=== PATIENT | female | born 1955 | race Caucasian/White ===

== ENCOUNTER 2020-02-19 08:49 | Emergency (ER) | payer MEDICAID, SELFPAY ==
[2020-02-19 08:53] VITALS: BP 132/102; PULSE 79; RESP 18; TEMP 37.1; O2SAT 100
[2020-02-19 08:55] VITALS: BP 133/102; PULSE 79; RESP 18; TEMP 37.1; O2SAT 100; BMI 19.3
--- NOTE | 2020-02-19 09:11 | ED.DCSUM_ITS ---
History of Present Illness Chief Complaint: Wound Check Informant: Patient Onset: Yesterday Context: Gradual Onset Timing: Intermittent Quality: serosanguinous drainage Location: L thigh surgical wound Current Severity: Moderate Maximum Severity: Moderate Worsened by: pushing on wound Relieved by: nothing Associated Symptoms: none. no pain, swellling, fevers, redness. Narrative: Patient had tongue cancer, and about 10 days ago had reconstructive tongue surgery at [facility] with a muscle flap taken from her left thigh. She has been doing well postoperatively. She has a DANTE drain in her left thigh that has been draining about 60 cc/day. Last night she noticed that it started leaking around the drain site for the first time, soaking her clothes nearby. She last emptied her drain last night, and there has been no output in it since. She denies any symptoms in her operative wound where the drain is, and no fevers or systemic symptoms of feeling poorly. - Past Medical History (1) Tongue cancer Status: Chronic Past Medical History - Allergies and Home Meds Allergies/Adverse Reactions: Allergies No Known Allergies Allergy (Verified 02/19/20 08:51) Primary Care Physician: Solomon San MD [Primary Care Provider] - Lives: With Family Smoking Status: Former smoker Review of Systems General: Denies: Chills, Fever, Sweats Gastrointestinal: Denies: Abdominal pain, Nausea, Vomiting, Diarrhea, Melena, Hematochezia Musculoskeletal: Denies: Back pain, Swelling, Extremity Pain Skin: Reports: Wounds - Operative. Denies: Rash Neurological: Denies: Headache, Weakness, Numbness Physical Exam Vital Signs/Narrative: Vital Signs Temp Pulse Resp BP Pulse Ox 02/19/20 08:55 98.7 F 79 18 133/102 H 100 02/19/20 08:53 98.7 F 79 18 132/102 H 100 Inital Vital Signs reviewed: Yes General: Well nourished, Well developed, No Acute Distress Head: Normocephalic, Atraumatic Extremities: Nontender, No edema Skin: Normal color, - - Left thigh surgical wound clean, dry, intact, without dehiscence. DANTE drain in place at proximal aspect, with palpation of this part of the wound, there is a slight amount of nonpurulent serosanguineous discharge expressible from around the drain. No induration or signs of cellulitis. Neurological: Alert, Oriented x3, Cranial nerves II-XII grossly intact, Normal Strength, Normal Sensation Psychological: Normal affect, Normal Mood Diagnostic/Tx/Re-eval - Medical Decision Making See the procedure note. There was a clot blocking the tubing of the drain. Once this was removed the drain functioned normally. Patient was reassured and is following up as scheduled. There is no sign of infection in the wound. Procedures Procedure(s): Marcelino-Carreno drain repair --there is a suction device at the end of the DANTE drain. Within about the distal 10 cm of the tubing, there is clot present causing obstruction. I was able to simply disassemble the tubing at the suction device, the clot was easily removable, the tubing was put back together and suction was applied and the serosanguineous drainage began immediately flowing throughout all of the tubing from the wound. ED Disposition - Plan for ED Patient: Disposition: Home or Assisted Living Diagnosis: Draining postoperative wound Instructions: ED Post Op Wound Check, General Referrals: Solomon San MD [Primary Care Provider] - surgeon, your [Other] (as directed/scheduled)
--- NOTE | 2020-02-19 09:51 | NURSING ---
in to take large stringy clot out of drain tube. drain then draining well now.
== END 2020-02-19 09:52 | disposition home or self-care (01) ==
LOC: ED 09:36
PROVIDERS: Emergency Provider Emergency Medicine
DX: T81.31XA Disruption of external operation (surgical) wound, not elsewhere classified, initial encounter (principal); Z87.891 Personal history of nicotine dependence; Z85.810 Personal history of malignant neoplasm of tongue
CPT/HCPCS: 99284

== ENCOUNTER 2020-06-02 10:27 | Outpatient (RCR) | payer MEDICAID, SELFPAY ==
[2020-03-07 11:16] VITALS: BMI 19.4
== END 2020-07-26 23:59 ==
LOC: IMMUN 10:27
PROVIDERS: Referring Provider Family Medicine; Visit Provider Family Medicine
DX: Z23 Encounter for immunization (principal)
CPT/HCPCS: 0001A; 0002A; 91300

== ENCOUNTER → 2020-12-29 13:12 | Outpatient (CLI) | payer MEDICAID, SELFPAY ==
[2020-03-07 11:16] VITALS: BMI 19.4
--- NOTE | 2020-12-29 14:28 | SP.MBSS_ITS ---
Modified Barium Swallow - Patient Information Study Date: 12/29/20 Study Time: 13:30 Direct Billable Minutes: 145 Total Minutes procedure & reportin Diagnosis: Tongue Cancer Referring Physician: Ryan Hennessy Reason for Referral: Referred for MBS to objectively assess the extent to which oropharyngeal swallow function has been impacted by her prior partial glossectomy with flap based reconstruction, right selective neck dissection, and postoperative radiation therapy and elucidate diet texture/liquid consistency/compensatory strategy recommendations. Imaging is medically necessary to improve specificity of dysphagia intervention for improved patient outcome. This patient expresses a desire to resume oral intake and decreased reliance upon PEG. 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 From 03/24/2020 - 05/06/2020: received 6000 cGy delivered to the postoperative flap based reconstruction and remaining oral tongue as well as the right neck levels 1B through 4 and 5400 cGy delivered to the left neck levels 1B through 4 as well as the bilateral supraclavicular fossa. Current Diet Ordered: NPO w/ PEG tube; consumes water by mouth only Dentition: Natural Teeth, Missing Teeth Mental Status: WNL Respiratory Status: Oxygenating on Room Air - Penetration-Aspiration Scale Penetration-Aspiration Scale: OBJECTIVE ASSESSMENT OF SWALLOW FUNCTION (QUANTITATIVE ? PER TRIAL): PENETRATION / ASPIRATION SCALE (BULL): 1 = does not enter airway 2 = enters airway/above vocal folds/ejected 3 = enters airway/above vocal folds/not ejected 4 = enters airway/contacts vocal folds/ejected 5 = enters airway/contacts vocal folds/not ejected 6 = enters airway/below vocal folds/ejected 7 = enters airway/below vocal folds/not ejected despite effort 8 = enters airway/below vocal folds/no effort VIDEOFLOROSCOPIC SCALE SCORE (BULL): Grade I = aspiration of material that has penetrated into the laryngeal vestibule, intact cough reflex Grade II = aspiration < 10 % of the bolus, intact cough reflex Grade III = aspiration of < 10 % of the bolus, reduced cough reflex or aspiration of > 10 % of the bolus, intact cough reflex Grade IV = aspiration of > 10 % of the bolus, reduced cough reflex - Penetration-Aspiration Scale Score Thin Liquid via small single sip from cup Result: 3= enters airways/above vocal folds/not ejected Thin Liquid via small single sip from cup Trial 2 Result: 8= enters airway/below vocal folds/no effort - Grade III = aspiration of < 10 % of the bolus, reduced cough reflex (SILENT ASPIRATION) Comment: Image: thin liquid contrast lining anterior wall of trachea - no patient awareness of aspiration - no post prandial coughing, throat clearing, or change in vocal quality appreciated - silent aspiration [place] Thick Liquid via large single sip from cup Result: 8= enters airway/below vocal folds/no effort - Grade III = aspiration of < 10% of the bolus, reduced cough response (SILENT ASPIRATION) Comment: penetration into the laryngeal vestibule, above the vocal folds, requiring 7 swallows to sufficiently clear the oropharynx; penetrated contrast did not eject resulting in post-prandial silent aspiration of pharyngeal residuals/penetrated contrast [place] Thick Liquid via small single sip from cup w/ breath hold/effortful swallow Result: 3= enters airways/above vocal folds/not ejected Comment: unable to transport majority of the small bolus into the pharynx d/t limited bolus size and lack of tongue movement; breath hold/effortful swallow not effec tive to improve laryngeal vestibule closure or pharyngeal bolus clearance Pudding via teaspoon Comment: unable to transport bolus out of the oral cavity d/t severely limited lingual motion, bolus expectorated/removed from the oral cavity Thin Liquid via single sip from cup Reclined 120 degrees Result: 2= enter airway/above vocal folds/ejected Comment: improved oral bolus clearance d/t gravitational assist; positioning allowed for liquid to spill along the posterior pharyngeal wall to the pyriform sinuses w/ transient laryngeal vestibule penetration d/t contrast spillage from the pyriforms w/ complete ejection; 5 swallows required to bolus clearance; no post- prandial aspiration 5mL Pudding via syringe administered to the right terminal sulcus of the tongue while Reclined 120 degrees Comment: unable to complete oral to pharyngeal transportation w/ entire bolus retained on the posterior lingual surface Thin Liquid via single sip from cup while reclined 120 degrees serving as liquid wash for 5mL pudding administered via syringe Result: 5= enters airways/contacts vocal folds/not ejected [place] Comment: unable to clear chew/orally manipulate, necessitating bolus removal from the oral cavity - Oral Phase Labial Seal: Escape beyond interlabial space; no extension beyond raquel border Tongue Control During Bolus Hold: Escape to lateral buccal cavity/floor of mouth Bolus Preparation/Mastication: Minimal chewing/mashing with majority of bolus unchewed Bolus Transport/Lingual Motion: Minimal to no tongue motion Oral Residue: Minimal to no clearance - Pharyngeal Phase Initiation of Pharyngeal Swallow: Bolus head in pyriforms Soft Palate Elevation: No bolus between soft palate and pharyngeal wall Laryngeal Elevation: Min superior movement thyroid cart/min apprx aryte cart- epig petiole Anterior Hyoid Excursion: No anterior movement Epiglottic Movement: No inversion Laryngeal Vestibule Closure at Height of Swallow: Incomplete; narrow column of air/contrast in laryngeal vestibule Pharyngeal Stripping Wave: Absent Pharyngoesophageal Segment Opening: Minimal distension and minimal duration; marked obstruction of flow Tongue Base Retraction: Wide column of contrast between tongue base & post. pharyngeal wall Pharyngeal Residue: Majority of contrast within or on pharyngeal structures - Esophageal Phase Esophageal Clearance: Complete clearance - Diagnosis/Impression Diagnosis: SEVERE oral dysphagia (R13.11); mod to severe pharyngeal dysphagia (R13.13) Impression: Swallow function is characterized by: * Impaired oral containment w/ diffuse spread t/o oral cavity d/t lack of lingua l cupping * Minimal lingual motion w/ severely limited A-P bolus transit * unable to transport majority of the small volume liquids boluses from the oral cavity into the pharynx d/t limited bolus size and lack of tongue movement * heavily reliant upon gravity and large bolus liquid bolus volume to t [place] liquids into the pharynx * Reduced tongue base retraction w/ the posterior pharyngeal wall attempting to compensate * unable to achieve sufficient pressure for pharyngeal pharyngeal bolus fadumo arance * Spillage to the pyriform sinuses vs. directly into the laryngeal vestibule, dependent upon positioning, prior to swallow onset * Poor arytenoid to epiglottic petiole contact w/ no epiglottic inversion resulting in laryngeal vestibule penetration w/ post prandial penetration/aspiration of pharyngeal residue * Partial thyroid elevation, no anterior thyrohyoid excursion resulting in: * poor arytenoid to epiglottic petiole contact w/ no epiglottic inversion and subsequent laryngeal vestibule penetration w/ post prandial penetration/aspiration of pharyngeal residue * Poor PES distention w/ limited pharyngeal to esophageal clearance, requiring 3-7 swallows per bolus for partial pharyngeal clearance Compensatory Strategies Trialed: * Effortful Swallow = not effective * Breath Hold + Effortful Swallow = not effective * Multiple Swallows = partially effective w/ liquids to improve pharyngeal residue clearance * Posterior Bolus Placement via Syringe = not effective * Reclined Position (~120 degrees) = effective, positioning allowed for liquid to spill along the posterior pharyngeal wall to the pyriform sinuses w/ significant reduction in prandial laryngeal vestibule penetration * Liquid Chaser to Aid Oral Bolus Clearance = not effective to assist w/ oral bolus transportation w/ pudding * Reduction in Bolus Size = not effective, unable to clear small volume liquid boluses from the oral cavity, relies upon gravity w/ benefit from increased liquid bolus volume to facilitate oral to pharyngeal bolus transportation for oral clearance spillage into the laryngeal vestibule prior to swallow onset when swallowing liquid while seated upright (above) vs. spillage to the pyriform sinuses prior to swallow onset when swallowing liquid while seated in a reclined position (below) Diet Recommended: * NPO - continued use of PEG tube as primary route for nutrition, hydration, and medication * OK for sips of water via cup AFTER thorough oral hygiene completed, liquid to be consumed while in a semi-reclined position of ~120 degrees, multiple swallows per bolus Additional Speech Therapy Services Recommended: Yes * This patient requires intensive skilled speech-language intervention targeting: * oral motor and oropharyngeal strengthening exercises to facilitate improved lingual strength and coordination, swallow onset timing, hyolaryngeal excursion, epiglottic inversion, laryngeal vestibule closure/pressure, pharyngeal motility and PES distention/duration * education, training and implementation of the [place] Free Water Protocol (FFWP) * education re: benefit of compensatory strategy for positioning w/ liquid intake - reclined ~120 degrees * education re: late effects of radiation therapy received (radiation fibrosis syndrome) Repeat MBS Recommended: Yes * Anticipate the need for increased frequency of repeated imaging studies during the course of dysphagia intervention * Would strongly discourage advancement water consumed in accordance w/ the FFWP without completion of a repeat modified barium swallow study Referrals Recommended: Yes * Instructional Technology Instructor - referral requested to evaluate appropriateness for transition from PEG to TIN-BULL low profile gastrostomy tube, as this would significantly improve this patient's quality of life and ease of use w/ enteral feedings Education Provided: * Images were reviewed w/ the patient and her mother (w/ the patient's expressed permission) immediately following MBS conclusion * Extended time spent providing education re: anatomy/physiology of swallow function and of deficits identified r/t partial glossectomy and right selective neck dissections level 1A through 4 followed by flap based reconstruction and post surgical radiation therapy received * Results, recommendations, and plan of care going forward - intensive skilled dysphagia intervention, repeated imaging studies - were discussed w/ the patient and her mother * All questions were answered to the patietn's satisfaction * Education was well received w/ the patient and her mother both verbalizing sufficient understanding and agreement with the provided education and recommended plan of care. - Status Active ST Patient: Active - Contact Information [facility] Speech Therapy:: Trini Thao M.A., CCC-[employer] [facility] [address] [place] [address] [phone] [email or web address] 12/29/20 19:00
== END ==
PROVIDERS: Referring Provider Student in an Organized Health Care Education/Training Program; Visit Provider Student in an Organized Health Care Education/Training Program
DX: C02.9 Malignant neoplasm of tongue, unspecified (principal)
CPT/HCPCS: 74230; 92611

== ENCOUNTER 2021-03-13 05:28 | Day surgery (SDC) | payer MEDICAID, SELFPAY ==
[2020-03-07 11:16] VITALS: BMI 19.4
[2021-03-13] VITALS (9 sets, daily range): BP systolic 94–137; BP diastolic 61–83; PULSE 76–88; RESP 6–16; TEMP 36.3–36.9; O2SAT 97–100; BMI 20.3
[2021-03-13] MEDS: Lactated Ringers 1,000 ML 15 ML IV (06:04)
--- NOTE | 2021-03-13 06:57 | PCM.HP.BLA ---
History and Physical Date of Admission: 03/13/21 ALEXYS JOY, is a 65 F who presents to the office today for Alexys is being seen today for evaluation of her enteral feed system. 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 From 03/24/2020 - 05/06/2020 she received adjuvant radiation therapy. Current tube was placed 02/08/2020 and is the original placement. She would like evaluated for placement of a Joshua tube because she has a lot of difficulty with the current tube being uncomfortable and getting pulled/caught on this during her daily life. She has been using the tube 3-4 times a day. Only intake by mouth is water. ST being seen and based on her barium swallow done recently she is at increased risk for aspiration. Currently using Isosource 1.5 formula, a total of four bottles a day. ROS Const Constitutional: No anorexia, fatigue, fever(s), weight change or sleep problems Eyes Eyes: No change in vision ENT ENT: No abnormal hearing, difficulty swallowing, mouth lesions, tongue swelling or throat swelling Resp Respiratory: No cough or shortness of breath Cardio Cardiology: No chest pain at rest, chest pain with exertion, shortness of breath or dyspnea on exertion Gastro GI: No difficulty swallowing Genitourinary-Female: No difficulty urinating or burning urination Musc Musculoskeletal: No joint pain, joint swelling, muscle weakness or decreased muscle mass Skin Skin: No hair loss in leg, yellowing of the eye, itchy eyes, rash, skin ulcer or skin swelling Neuro Neurology: No abnormal hearing, abnormal movements, confusion, unsteady gait/balance or memory loss Psych Psychiatric: No anxiety, No confusion and No memory loss Endo Endocrine: No fatigue or weight change Aller/Imm Allergy/Immunologic: No itchy eyes, throat swelling or tongue swelling Ponce/Lymp Hematologic/Lymphatic: No easy bleeding, easy bruising or enlarged lymph nodes Exam Const General: cooperative and comfortable Nutritional Appearance: average body habitus and well nourished [facility] Head: normal to inspection Ears: hearing grossly normal bilaterally Nose: external nose normal Face and sinus: normal facial exam Mouth: oral mucosae normal Throat: posterior oropharynx normal Eyes General: appearance normal, both eyes and all related structures Neck Neck: normal visual inspection Chest Chest palpation & inspection: normal inspection of the chest and normal palpation of entire chest wall Resp Effort & Inspection: normal respiratory effort Auscultation: Bilateral: Clear to Auscultation Cardio Palpation: normal PMI Rate: regular rate Rhythm: regular rhythm GI Inspection: normal to inspection Auscultation: normal bowel sounds Percussion: normal to percussion Palpation: no hepatosplenomegaly Other: PEG tube in place with mildly erythematous stoma Skin General: no rashes or lesions noted Neuro General: patient alert Extrem General: normal to inspection Psych Affect: normal affect Quality Reporting Tobacco Screening ([facility] 138) Smoking Status: Former smoker Assessment and Plan Assessment and Plan (1) PEG tube malfunction: Status: Acute Plan - Dr. Fowler Friend, DO: We will take her for endoscopy and remove her current PEG tube. We will then placed a Joshua tube. I suspect that she will need an 18 English PEG tube as that is the size of her current PEG tube. However we may need to go a little bit bigger because of the location of the tube in her abdomen. It is at a fold. Typically if you place a larger PEG tube add a full decrease in abdomen it has less chance to cause any swelling and stomal abnormalities. (2) Esophageal dysphagia: Status: Acute Plan - Dr. Fowler Friend, DO: Esophageal dysphagia possibly secondary to radiation to the larynx. We will perform upper endoscopy and possibly dilation of the proximal esophagus around the level of the cricopharyngeus. She was explained alternatives, risk, benefits including outstanding bleeding, infection, sepsis, perforation, need for emergent . She elected to have EGD with PEG placement possible esophageal dilation. I have re-examined the patient. There are no clinical changes since date of exam.
--- NOTE | 2021-03-13 07:21 | OP.EGD_ITS ---
Patient Name: Yumiko Chatman Procedure Date: 03/13/2021 6:18 AM Date of : 1955 Age: 65 Procedure: Upper GI endoscopy Indications: Dysphagia Providers: Malcolm Byers DO Medicines: See the Anesthesia note for documentation of the administered medications Patient Profile: This is a 65 year old female. Refer to note in patient chart for documentation of history and physical. Patient has symptoms. She is status post EGD for PEG placement within the past five years. Complications: No immediate complications. Procedure: Pre-Anesthesia Assessment: - Prior to the procedure, a History and Physical was performed, and patient medications and allergies were reviewed. The risks and benefits of the procedure and the sedation options and risks were discussed with the patient. All questions were answered and informed consent was obtained. Patient identification and proposed procedure were verified by the physician in the pre-procedure area. Mental Status Examination: alert and oriented. Airway Examination: normal oropharyngeal airway and neck mobility. Respiratory Examination: clear to auscultation. CV Examination: normal. Prophylactic Antibiotics: The patient does not require prophylactic antibiotics. Prior Anticoagulants: The patient has taken no previous anticoagulant or antiplatelet agents. After reviewing the risks and benefits, the patient was deemed in satisfactory condition to undergo the procedure. The anesthesia plan was to use moderate sedation / analgesia (conscious sedation). Immediately prior to administration of medications, the patient was re-assessed for adequacy to receive sedatives. The heart rate, respiratory rate, oxygen saturations, blood pressure, adequacy of pulmonary ventilation, and response to care were monitored throughout the procedure. The physical status of the patient was re-assessed after the procedure. After obtaining informed consent, the endoscope was passed under direct vision. Throughout the procedure, the patient's blood pressure, pulse, and oxygen saturations were monitored continuously. The Endoscope was introduced through the mouth, and advanced to the second part of duodenum. The upper GI endoscopy was accomplished without difficulty. The patient tolerated the procedure well. Moderate Sedation: Moderate (conscious) sedation was administered by the endoscopy nurse and supervised by the endoscopist. The following parameters were monitored: oxygen saturation, heart rate, blood pressure, and response to care. Total physician intraservice time was 15 minutes. Scope In: 7:05:36 AM Scope Out: 7:14:42 AM Total Procedure Duration Time 0 hours 9 minutes 6 seconds Findings: One benign-appearing, intrinsic stenosis was found 34 to 35 cm from the incisors. This stenosis was severe and. The stenosis was traversed. A guidewire was placed and the scope was withdrawn. Dilation was performed with a Savary dilator with no resistance at 54 Fr. The dilation site was examined and showed moderate improvement in luminal narrowing. Estimated blood loss was minimal. A hiatal hernia was present. There was evidence of an eroding gastrostomy tube present in the gastric body. The PEG required removal because it developed complications. The PEG was cut externally, grasped, and removed with the scope. Removal was easily accomplished. An externally removable 20 Fr Bard gastrostomy tube was lubricated. The guide wire was passed through the existing G-tube port and snared endoscopically. The endoscope and snare were then removed, pulling the wire out through the mouth. The g-tube was passed over the guidewire through the mouth, into the stomach and out through the G-tube port. The bumper was attached to the gastrostomy tube. The feeding tube was then cut to an appropriate length. The final position of the gastrostomy tube was confirmed by relook endoscopy, and skin marking noted to be 4 cm at the external bumper. The final tension and compression of the abdominal wall by the PEG tube and external bumper were checked and revealed that the bumper was loose and not touching the skin. The tube was capped, and the tube site was cleaned and dressed. The second portion of the duodenum was normal. Impression: - Benign-appearing esophageal stenosis. Dilated. - Hiatal hernia. - Eroding gastrostomy tube present. - Normal second portion of the duodenum. - The PEG was removed because it developed complications, and replaced with an externally removable PEG. - No specimens collected. Recommendation: - Discharge patient to home. - Resume previous diet. - Continue present medications. - Return to my office. Procedure Code(s): --- Professional --- 44451, Esophagogastroduodenoscopy, flexible, transoral; with directed placement of percutaneous gastrostomy tube 16265, Esophagogastroduodenoscopy, flexible, transoral; with insertion of guide wire followed by passage of dilator(s) through esophagus over guide wire 76951, 59, Moderate sedation services provided by the same physician or other qualified health infant childcare provider performing the diagnostic or therapeutic service that the sedation supports, requiring the presence of an independent trained observer to assist in the monitoring of the patient's level of consciousness and physiological status; initial 15 minutes of intraservice time, patient age 5 years or older CPT copyright 2017 [employer] [place] [employer]. All rights reserved. The codes documented in this report are preliminary and upon fleet maintenance manager review may be revised to meet current compliance requirements. Malcolm Byers DO 03/13/2021 7:21:05 AM This report has been signed electronically. Number of Addenda: 1 Note Initiated On: 03/13/2021 6:18 AM Addendum Number: 1 Addendum Date: 10/26/2021 6:21:57 AM MAC was used instead of moderate sedation for the patient. Malcolm Byers DO 10/26/2021 6:22:01 AM This report has been signed electronically.
--- NOTE | 2021-03-13 07:21 | OP.CCLET_ITS ---
10/26/2021 No Primary Care Physician Re : Upper GI endoscopy procedure for Yumiko Chatman [facility] Physician This procedure was performed on Saturday, March 13, 2021. My impressions and recommendations are as follows: Impressions : - Benign-appearing esophageal stenosis. Dilated. - Hiatal hernia. - Eroding gastrostomy tube present. - Normal second portion of the duodenum. - The PEG was removed because it developed complications, and replaced with an externally removable PEG. - No specimens collected. Recommendations : - Discharge patient to home. - Resume previous diet. - Continue present medications. - Return to my office. My findings are described in the full procedure note, which is enclosed. If I can be of further assistance, please feel free to contact me at . Sincerely, Malcolm Byers, 03/13/2021 7:21:05 AM This report has been signed electronically.
== END 2021-03-13 23:59 | disposition home or self-care (01) ==
LOC: EN 05:30 → AC 05:31
PROVIDERS: Visit Provider Internal Medicine Gastroenterology
PROC: 0DJ08ZZ Inspection of Upper Intestinal Tract, Via Natural or Artificial Opening Endoscopic (ICD-10-PCS; CPT 43235; principal; 2021-03-13 06:25)
DX: K94.23 Gastrostomy malfunction (principal); K44.9 Diaphragmatic hernia without obstruction or gangrene; K22.2 Esophageal obstruction; Z87.891 Personal history of nicotine dependence
CPT/HCPCS: 43248; 43246; 87426; J7120; C1769; J2405

== ENCOUNTER 2021-03-21 13:06 | Outpatient (CLI) | payer MEDICAID, SELFPAY ==
[2020-03-07 11:16] VITALS: BMI 19.4
--- NOTE | 2021-03-21 14:51 | SP.MBSS_ITS ---
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 From 03/24/2020 - 05/06/2020: received 6000 cGy delivered to the postoperative flap based reconstruction and remaining oral tongue as well as the right neck levels 1B through 4 and 5400 cGy delivered to the left neck levels 1B through 4 as well as the bilateral supraclavicular fossa. She has been participating in OP speech therapy for training in oropharyngeal strength exercise program. She has additionally been trained in FFWP. Referred for repeat MBS study to determine if pt is appropriate for diet advancement. She is currently NPO with PEG tube and FFWP. Current Diet Ordered: NPO with PEG tube and FFWP Dentition: WNL Mental Status: WNL Respiratory Status: Oxygenating on Room Air - Penetration-Aspiration Scale Penetration-Aspiration Scale: OBJECTIVE ASSESSMENT OF SWALLOW FUNCTION (QUANTITATIVE ? PER TRIAL): PENETRATION / ASPIRATION SCALE (BULL): 1 = does not enter airway 2 = enters airway/above vocal folds/ejected 3 = enters airway/above vocal folds/not ejected 4 = enters airway/contacts vocal folds/ejected 5 = enters airway/contacts vocal folds/not ejected 6 = enters airway/below vocal folds/ejected 7 = enters airway/below vocal folds/not ejected despite effort 8 = enters airway/below vocal folds/no effort VIDEOFLOROSCOPIC SCALE SCORE (BULL): Grade I = aspiration of material that has penetrated into the laryngeal vestibule, intact cough reflex Grade II = aspiration < 10 % of the bolus, intact cough reflex Grade III = aspiration of < 10 % of the bolus, reduced cough reflex or aspiration of > 10 % of the bolus, intact cough reflex Grade IV = aspiration of > 10 % of the bolus, reduced cough reflex - Penetration-Aspiration Scale Score Thin Liquid via teaspoon Result: 1= does not enter airway Thin Liquid via teaspoon Trial 2 Result: 7= enters airways/below vocal folds/not ejected despite effort Thin Liquid via small single sip from cup Result: 5= enters airways/contacts vocal folds/not ejected [place] Thick Liquid via small single sip from cup Result: 2= enter airway/above vocal folds/ejected [place] Thick Liquid via small single sip from cup Trial 2 Result: 2= enter airway/above vocal folds/ejected Thin Liquid via small single sip from cup Trial 2 Result: 2= enter airway/above vocal folds/ejected Thin Liquid via small single sip from cup Trial 3 Result: 5= enters airways/contacts vocal folds/not ejected Comment: Liquid wash cleared majority of pudding trial from oral cavity. Mild residue remaining. Pudding via syringe (3 mL) - placement on L side of terminal sulcus of tongue Comment: Could not test as pt was unable to propel bolus posteriorly. Thin Liquid via teaspoon reclined 120 degrees Result: 1= does not enter airway Comment: Bolus required increased number of swallows as compared to other trials due to velum greatly impeding posterior transport of liquid from oral cavity. Thin Liquid via small single sip from cup Effortful swallow Result: 2= enter airway/above vocal folds/ejected Thin Liquid via small single sip from cup Effortful swallow Trial 2 Result: 8= enters airway/below vocal folds/no effort [place] Thick Liquid via small single sip from cup Trial 3 Result: 2= enter airway/above vocal folds/ejected [place] Thick Liquid via teaspoon Result: 2= enter airway/above vocal folds/ejected Thin Liquid Rinse and Spit Comment: Cleared oral residue of nectar thick liquid trials. - Oral Phase Labial Seal: No Labial Escape Tongue Control During Bolus Hold: Posterior escape of less than half of bolus Bolus Preparation/Mastication: Minimal chewing/mashing with majority of bolus unchewed - DNT due to severe deficits in A-P transport of bolus Bolus Transport/Lingual Motion: Minimal to no tongue motion Oral Residue: Majority of bolus remaining - Pharyngeal Phase Initiation of Pharyngeal Swallow: Bolus head in pyriforms Soft Palate Elevation: No bolus between soft palate and pharyngeal wall Laryngeal Elevation: Partial superior movement thyroid cart/partial apprx aryt- epig petiole Anterior Hyoid Excursion: No anterior movement Epiglottic Movement: No inversion Laryngeal Vestibule Closure at Height of Swallow: Incomplete; narrow column of air/contrast in laryngeal vestibule Pharyngeal Stripping Wave: Present - diminished Pharyngoesophageal Segment Opening: Parital distension and partial duration; parital obstruction of flow Tongue Base Retraction: Narrow column of contrast between tongue base & post. pharyngeal wall Pharyngeal Residue: Collection of residue within or on pharyngeal structures - Treatment Strategies Effects of treatment strategies attemped:: Posterior bolus placement (via syringe) = somewhat effective. Decreased bolus size = effective. Effortful swallow = not effective. Multiple swallows = effective. - Diagnosis/Impression Diagnosis: Severe oral dysphagia (R13.11), Moderate pharyngeal dysphagia (R13.13) Impression: The patient presents with severely impaired lingual ROM resulting in poor bolus formation, bolus control, and A-P transit. She presents with premature posterior loss of bolus to the pyriforms. The patient benefits from tilting her head back to improve bolus transport. She has moderate-severe oral residues. She was able to effectively clear residue of nectar thickened liquids from sulcus in posterior tongue base with use of oral swish with expectoration. The pharyngeal phase of the swallow is marked by decreased airway protection. She has decreased laryngeal elevation; however, it appears to be improved from previous MBS study. She continues with little to no anterior hyoid excursion and epiglottic inversion. The patient does demonstrate improved pharyngeal contraction from previous study. She demonstrates mild-moderate pharyngeal residues after the swallow. The patient demonstrated SILENT aspiration of thin liquids. She had penetration above the vocal folds with full ejection from the laryngeal vestibule of nectar thick liquids. SEE PAS scoring above for additional information regarding penetration and aspiration observed during the study. - Recommendations Diet: [place]-thick Liquids Comment: Swish and rinse oral cavity with water or mouthwash following completion of nectar thick liquids Compensatory Strategies: Small Sips - via cup or teaspoon., Slow Rate - Sips one at a time, Multiple Swallows, Sitting upright, Remain sitting upright for 30 minutes after PO intake Recommend Repeat Modified Barium Swallow: Yes - Will recommend repeat MBS study in 8-12 weeks. Would not advance diet prior to repeat MBS study. Need for Skilled Speech Therapy Services: Yes Comment: Will recommend the patient for continued outpatient dysphagia therapy to address continued deficits in oropharyngeal swallow function. Would consider the patient for oropharyngeal strengthening to improve laryngeal elevation, anterior hyoid excursion, and duration of UES opening. The patient would benefit from thorough education regarding diet recommendations and recommended compensatory strategies. Would continue with Champion Free Water Protocol (FFWP) to encourage hydration and promote increased opportunities for swallowing throughout the patient?s day. Additionally, would consider the patient for myofascial release with oropharyngeal strengthening and neck ROM exercises to promote release of scar tissue s/p radiation treatment in order to improve ROM of swallowing mechanism. VISUAL EDUCATION TEACHER discussed recommendation for myofascial release with radiation oncologist, Dr. Hennessy, who cleared pt for participation in myofascial release. Education Completed: 1. Described result of evaluation., 2. Pt understands evaluation & agrees with goals and treatment plan., 4. Family/caregivers understand evaluation & agree w/ goals & tx plan., 7. Pt requires further education on strategies & risks., 8. Family/caregivers require further education on strategies & risks. - Status Active ST Patient: Active - Contact Information [facility]:: China Kahn M.A. [facility]-VISUAL EDUCATION TEACHER Speech-Language Pathologist [facility] [address] [place] [address] [email or web address] [phone] 03/21/21 15:15
== END 2021-03-21 23:59 | disposition short-term general hospital (02) ==
LOC: RAD 13:07
PROVIDERS: Referring Provider Student in an Organized Health Care Education/Training Program; Visit Provider Student in an Organized Health Care Education/Training Program
DX: C02.9 Malignant neoplasm of tongue, unspecified (principal)
CPT/HCPCS: 74230; 92611

== ENCOUNTER 2021-06-01 11:30 | Outpatient (RCR) | payer MEDICAID, SELFPAY ==
[2020-03-07 11:16] VITALS: BMI 19.4
--- NOTE | 2020-12-14 16:16 | HP.SP.AD ---
History - History Date of Eval: 12/14/20 Referring Doctor: Dr. Ryan Hennessy Medical Diagnosis (from RX): malignant neoplasm of tongue Previous speech therapy: Yes Results: Pt reports receiving 2-4 speech therapy treatmtments w/ Yesy Turner at [facility] numerous months ago. Reports having had prior FEES. No MBS to date. Pt denies completion of any swallowing exercise regimen at home. 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 From 03/24/2020 - 05/06/2020: received 6000 cGy delivered to the postoperative flap based reconstruction and remaining oral tongue as well as the right neck levels 1B through 4 and 5400 cGy delivered to the left neck levels 1B through 4 as well as the bilateral supraclavicular fossa. Pt endorses increased difficulty w/ completion of purposeful swallow over the past 6 months, feeling that her swallow is not as strong. Pt expresses a desire to resume oral intake and decreased reliance upon PEG. Smoking Status: Former smoker Hx Tobacco Use: Yes - Pain Is pain an issue with your current prescribed condition?: No - Personal Right Hearing Abillity: Normal Left Hearing Abillity: Normal Visual Assistive Devices: Glasses Patients Living Arrangements: Alone Patient Allergies - Allergies Allergies No Known Allergies Allergy (Verified 12/01/20 14:12) Objective Oral Motor - Oral Status Dentition: Missing Teeth Additional: R upper molars present, all other dentition removed - Labial Impairment: WNL Observation at Rest: WNL Closure: WNL Pucker: WNL Retraction: WNL Alternating Pucker/Retraction: WNL Involuntary Movement noted: No - Lingual Impairment: Severe Protrusion: Severe Retraction: Severe Lateralization: Severe Involuntary Movement: No - Lingual Comments Comments: No lingual elevation, trace lateralization. - Jaw Impairment: WNL - Oral Motor Comments Comments: Xerostomia; R cheek, jaw, neck and ear - reduced sensation w/ tingling . - Respiratory Status Respiratory Status: Room Air Dysphagia Assessment - Swallowing Impairment Contributing Factors to Swallowing Impairment: Impaired Oral-Pharyngeal Transport Other: partial glossectomy s/p reconstruction, prior radiation, disuse atrophy - Impact Impact on Safety & Functioning: Risk for Aspiration, Risk for Inadequate Nutrition/Hydration Comments: Evaluated swallow function w/ thin liquid via cup and pureed texture via teaspoon. Pt presents w/ severe oral phase dysphagia and suspected oropharyngeal dysphagia. Adequate labial seal around spoon without anterior bolus loss. Impaired bolus formation d/t severely limited lingual ROM - unable to form cohesive bolus on tongue, no lingual assistance for A-P bolus transportation. Pt leaning head back and relying upon gravity to oral clearance. Diffuse oral residue on tongue and bilateral buccal cavities w/out ability to recollect d/t lack of lingual ROM. Liquid wash effective to reduce but not entirely clear residue. Unable to suck liquids through straw d/t impaired lingual motion. No overt s/s aspiration across limited trials. Evaluation of swallow function was limited to trials of thin liquid via cup and 1 tsp puree d/t severity of oral phaseimpairment. Solid texture trials deferred d/t high risk for aspiration/airway obstruction. Patient utilized an effortful swallow and multiple swallows per bolus. Poor pharyngeal bolus clearance highly suspected d/t probable insufficient tongue base retraction/pharyngeal contraction. A Modified Barium Swallow study is medically necessary prior to continued dysphagia therapy to determine the extent to which prior glossectomy w/ reconstruction, disuse atrophy d/t prolonged NPO status and potential radiation fibrosis s/p radiation therapy have impacted swallow function. MBS required to elucidate current function and allow for improved specificity of treatments to be provided. - Diet Texture Recommendations Liquids: Thin Other: Recommend oral intake of water only w/ all other nutrition/hydration/medication to be provided via PEG until a Modified Barium Swallow Study can be completed. Pt may benefit from syringe feeding of boluses to improve bolus location/transportation during MBS. FOIS - Functional Oral Intake Scale Tube dependent with minimal attempts of food or liquid: Level 2 SP Oncology PSS-HN - PSS-HN Test Normalcy of Diet: Cold liquids Scale Result:: 10 Public Eating: Always eats alone Public eating scale: 0 Understandability of Speech: Usually understandable; [id number] contact necessary Understandability of Speech Scale: 50 Plan - Plan Plan: Will recommend the patient for skilled outpatient dysphagia therapy to address severe oral phase dysphagia and suspected oropharyngeal dysphagia related to tongue cancer s/p partial glossectomy w/ flap based reconstruction cancer. Will complete a Modified Barium Swallow Study to elucidate current function and allow for improved specificity of treatments to be provided w/ initiation of a swallowing exercise regimen to improve swallow function and implement compensatory strategies to allow for effective oral intake w/ decreased aspiration risk. This patient requires skilled dysphagia intervention, as disuse atrophy, radiation fibrosis and effects of glossectomy/reconstruction have severely impacted this patient?s swallow function. Without additional therapy, this patient is at risk for aspiration, malnutrition and decline in quality of life. - Recommendations MBS: Yes Treatment Warranted: Yes - Frequency Frequency: 1x/Week Duration: 12 Months - Prognosis Prognosis: Good - Goals that are Established: Determination:: Goals will be added/modified as deemed necessary and appropriate. Therapy will be discontinued when results of re-evaluation indicate therapy is no longer needed or lack of progress has been documented. - Goal #1-5 Goal #1: Patient will consume the least restrictive means of PO nutrition/hydration without overt s/s aspiration x 90%, given min verbal cues for use of compensatory strategies to reduce aspiration risk. Goal #2: Patient will complete the recommended oropharyngeal swallowing exercise program to improve swallow function and compensate for changes in swallow function s/p partial glossectomy w/ reconstruction and adjuvant chemoradiation - goal: 10 reps, 3-5 sets daily with min cues. Goal #3: Patient will participate in a Modified Barium Swallow Study to objectively assess swallow function for determination of appropriate dysphagia interventions and necessary compensatory strategies to allow for return to the least restrictive means of PO intake. Education - Patient has Indicated that the Following Identified Educational Needs: None The Patient has indicated that they have no educational or learning abilities that may effect their care.: Yes - Patient Instruction Patient Education: Diagnosis, Treatment Plan, Goals, Safety Precautions, Diet Level, Home Exercise Program Other Education: Education provided regarding the half-way effects of radiation treatment on swallow function (radiation fibrosis syndrome), ramifications of prolonged NPO status on swallow function (disuse atrophy, and normal anatomy/physiology of swallow function compared to swallow function s/p partial glossectomy w/ reconstruction. Discussed impaired swallow function and increased risk for aspiration, aspiration related illnesses, weight loss, and malnutrition. Discussed the importance of continued speech therapy to evaluate and treat dysphagia w/ the goal of resuming functional oral intake. Handouts provided re: the importance of proactive swallow exercise completion while NPO and radiation fibrosis syndrome. Home exercise program provided (effortful swallow, jaw ROM) for patient to initiate w/ exercise program adjustment as appropriate pending MBS findings. The patient demonstrated comprehension via accurate execution of exercises following MAINTENANCE AND CUSTODIAN SUPERVISOR demonstration and min verbal cues. Person Taught: Patient, Family Teaching Method: Discussion, Demonstration, Handout, Teach back Response to teaching: Return demonstration, Verbalize understanding
--- NOTE | 2021-06-02 15:14 | HP.SP.ADRE_ITS ---
Previous/Current Goals - Goals 1-5 Previous Goal #1: Patient will consume the least restrictive means of PO nutrition/hydration without overt s/s aspiration x 90%, given min verbal cues for use of compensatory strategies to reduce aspiration risk. Goal 1 Status: PROGRESSING - Primary means of nutrition/hydration are 4 Isosource cartons via PEG tube. She does consume consistent oral intake of nectar thick liquids with [place] Free Water Protocol. Previous Goal #2: Patient will complete the recommended oropharyngeal swallowing exercise program (effortful swallows, Nora, effortful breath hold and swallow, X10-20 reps, 3-5X daily) to improve swallow function and compensate for changes in swallow function s/p partial glossectomy w/ reconstruction and adjuvant chemoradiation - goal: 10 reps, 3-5 sets daily with min cues. Goal 2 Status: PROGRESSING - Consistent completion of effortful swallows (~80 reps daily). Intermittent completion of Nora and effortful breath hold and swallow (~0-25 reps daily). Previous Goal #3: Patient will participate in a Modified Barium Swallow Study to objectively assess swallow function for determination of appropriate dysphagia interventions and necessary compensatory strategies to allow for return to the least restrictive means of PO intake. Goal 3 Status: PROGRESSING - Repeat MBS study planned for June 2021. Date TBD. Previous Goal #4: The patient will participate in speech production assessment to set additional goals as needed to POC. Goal 4 Status: GOAL MET - Speech production assessment completed 06/01/2021. Goals added to POC. History - History Date of Eval: 12/14/20 Medical Diagnosis (from RX): malignant neoplasm of tongue Previous speech therapy: Yes Results: Pt reports receiving 2-4 speech therapy treatments w/ Yesy Turner at [facility] numerous months ago. Most recent MBS study 03/21/2021 revealed SILENT aspiration of thin liquids. Study recommended [place]- thick Liquids (Swish and rinse oral cavity with water or mouthwash following completion of nectar thick liquids), Compensatory Strategies: Small Sips - via cup or teaspoon., Slow Rate - Sips one at a time, Multiple Swallows, Sitting upright, Remain sitting upright for 30 minutes after PO intake. FFWP also recommended from the study. The patient has participated in 14 speech therapy sessions to address oropharyngeal dysphagia since initial evaluation 12/14/20 to implement oropharyngeal strengthening, provide ongoing assessment of diet tolerance, and train the patient in strategies to decrease aspiration risk. 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 From 03/24/2020 - 05/06/2020: received 6000 cGy delivered to the postoperative flap based reconstruction and remaining oral tongue as well as the right neck levels 1B through 4 and 5400 cGy delivered to the left neck levels 1B through 4 as well as the bilateral supraclavicular fossa. Smoking Status: Former smoker Hx Smoking Cessation Date: 02/08/20 Hx Tobacco Use: Yes - Pain Is pain an issue with your current prescribed condition?: No - Personal Right Hearing Abillity: Normal Left Hearing Abillity: Normal Visual Assistive Devices: Glasses Patients Living Arrangements: Alone Patient Allergies - Allergies Allergies No Known Allergies Allergy (Verified 04/03/21 14:26) FOIS - Functional Oral Intake Scale Tube dependent with consistent oral intake of food or liquid: Level 3 Other Impressions - Comments Speech Production Assessment 06/01/2021 -: The patient participated in informal assessment of speech production to assess dysarthria s/p partial glossectomy (02/08/2020). She and her mother report that Yumiko had excellent speech production prior to surgery in 2019. She was a M[employer]ese major, and she also studied Amharic and drama in college. She was an medical accountant in the past. Marilyn, Yumiko's mother, often has difficulty understanding Yumiko at home. Oral motor assessment conducted. The patient presented with labial pucker, retraction, and alternating pucker/retraction WNL. Tongue ROM appears to be severely restricted s/p partial glossectomy. She d emonstrates moderate deficits in lingual retraction, moderate-severe deficits in elevating tongue to palate, severe deficits lateralizing tongue, and severe deficits with protrusion. Pt unable to contact upper or lower teeth with tongue tip or dorsal tongue surface (~2-4mm from contacting upper teeth). Jaw ROM WNL. Jaw opening 37mm (WNL = 35-55mm). Soft palate elevation is symmetrical and appears WNL. The patient is unable to articulate alveolar (t, d, s, k), interdental (voiced and voiceless th), /l/ or /r/ in isolation due to restricted tongue ROM. She was able to articulate all labial stops, glottal stops, and palatal fricatives. Sustained /a/ completed with 24 seconds. Phonation loud and vocal quality WNL. The patient performed an oral reading with adequate volume, slow rate, ~90% speech clarity. Pt converses in simple conversation with ~85% speech clarity. Diadochokinetic rates completes. /p/ 16X/5 seconds (WNL). /t/ 0X/5 seconds (Severe) - pt substituted /k/ for /t/. /k/ 15X/5 seconds (WNL). /p^t^k^/ 9X/5 seconds with /k/ substitution for all /t/. The patient presents with moderate dysarthria characterized by inability to articulate alveolar sounds (t, d, s, k), interdental sounds (voiced and voiceless th), /l/ or /r/ due to severely restricted lingual ROM. Will recommend skilled OP speech therapy to train the patient in oral motor ROM exercises and strategies to improve speech clarity to increase speech intelligibility for improved ability to communicate medical and social wants and needs. Plan - Plan Plan: Will recommend the patient for skilled outpatient dysphagia therapy to address moderate dysarthria and severe oropharyngeal dysphagia related to tongue cancer s/p partial glossectomy w/ flap based reconstruction cancer. Will complete a repeat Modified Barium Swallow Study in June 2021 to reassess swallow function, aspiration risk, implement further exercises and compensatory strategies to decrease aspiration risk, and determine appropriateness for diet advancement. This patient requires skilled dysphagia intervention, as disuse atrophy, radiation fibrosis, and effects of glossectomy/reconstruction have severely impacted this patient?s swallow function. She also requires skilled speech therapy to address moderate dysarthria, implement oral motor strength and ROM exercises, and train in strategies to improve speech clarity. Without additional therapy, this patient is at risk for aspiration, malnutrition, and decline in quality of life. - Recommendations MBS: Yes Treatment Warranted: Yes - Frequency Frequency: Every Other Week Duration: 4-6 Months - Prognosis Prognosis: Good - Goals that are Established: Determination:: Goals will be added/modified as deemed necessary and appropriate. Therapy will be discontinued when results of re-evaluation indicate therapy is no longer needed or lack of progress has been documented. - Goal #1-5 Goal #1: Patient will consume the least restrictive means of PO nutrition/hydration without overt s/s aspiration x 90%, given min verbal cues for use of compensatory strategies to reduce aspiration risk. Goal #2: Patient will complete the recommended oropharyngeal swallowing exercise program (effortful swallows, Nora, effortful breath hold and swallow, X10- 20 reps, 3-5X daily) to improve swallow function and compensate for changes in swallow function s/p partial glossectomy w/ reconstruction and adjuvant chemoradiation - goal: 10 reps, 3-5 sets daily with min cues. Goal #3: Patient will participate in a Modified Barium Swallow Study to objectively assess swallow function for determination of appropriate dysphagia interventions and necessary compensatory strategies to allow for return to the least restrictive means of PO intake. Goal #4: The patient will produce speech in short conversational samples (3-5 minutes) with 90% intelligibility with minimal verbal cues for use of compensatory strategies. Goal #5: The patient will demonstrate use or verbalize awareness of compensatory strategies to improve speech clarity with minimal verbal cues. - Goal #6-10 Goal #6: The patient will complete oral motor ROM exercises 4-5X daily independently to promote improve speech clarity in conversation.
== END 2021-06-01 19:00 | disposition home or self-care (01) ==
LOC: SP 11:30
PROVIDERS: Referring Provider Student in an Organized Health Care Education/Training Program; Visit Provider Student in an Organized Health Care Education/Training Program
DX: C02.8 Malignant neoplasm of overlapping sites of tongue (principal)
CPT/HCPCS: 92522; 92526; 92610

== ENCOUNTER → 2021-06-20 | Outpatient (CLI) | payer MEDICAID, SELFPAY ==
[2020-03-07 11:16] VITALS: BMI 19.4
--- NOTE | 2021-06-20 15:50 | SP.MBSS_ITS ---
Modified Barium Swallow - Patient Information Study Date: 06/20/21 Study Time: 13:00 Direct Billable Minutes: 120 Total Minutes procedure & reportin Diagnosis: Tongue cancer (C02.9) Referring Physician: Ryan Hennessy Reason for Referral: Objectively assess swallow function, risk for aspiration, and determine recommendations for least restrictive diet textures and compensatory strategies to improve safety of swallow. 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 From 03/24/2020 - 05/06/2020: received 6000 cGy delivered to the postoperative flap based reconstruction and remaining oral tongue as well as the right neck levels 1B through 4 and 5400 cGy delivered to the left neck levels 1B through 4 as well as the bilateral supraclavicular fossa. Pt reports receiving 2-4 speech therapy treatments w/ Yesy Turner at [facility] numerous months ago. Most recent MBS study 03/21/2021 revealed SILENT aspiration of thin liquids. Study recommended [place]-thick Liquids (Swish and rinse oral cavity with water or mouthwash following completion of nectar thick liquids), Compensatory Strategies : Small Sips - via cup or teaspoon., Slow Rate - Sips one at a time, Multiple Swallows, Sitting upright, Remain sitting upright for 30 minutes after PO intake. FFWP also recommended from the study. The patient has participated in 15 speech therapy sessions to address oropharyngeal dysphagia since initial evaluation 12/14/20 to implement oropharyngeal strengthening, provide ongoing assessment of diet tolerance, and train the patient in strategies to decrease aspiration risk. She also participated in myofascial release during POC. Current Diet Ordered: NTL w/ FFWP, Majority of nutrition via PEG Dentition: Natural Teeth Mental Status: WNL Respiratory Status: Oxygenating on Room Air - Penetration-Aspiration Scale Penetration-Aspiration Scale: OBJECTIVE ASSESSMENT OF SWALLOW FUNCTION (QUANTITATIVE ? PER TRIAL): PENETRATION / ASPIRATION SCALE (BULL): 1 = does not enter airway 2 = enters airway/above vocal folds/ejected 3 = enters airway/above vocal folds/not ejected 4 = enters airway/contacts vocal folds/ejected 5 = enters airway/contacts vocal folds/not ejected 6 = enters airway/below vocal folds/ejected 7 = enters airway/below vocal folds/not ejected despite effort 8 = enters airway/below vocal folds/no effort VIDEOFLOROSCOPIC SCALE SCORE (BULL): Grade I = aspiration of material that has penetrated into the laryngeal vestibule, intact cough reflex Grade II = aspiration < 10 % of the bolus, intact cough reflex Grade III = aspiration of < 10 % of the bolus, reduced cough reflex or aspiration of > 10 % of the bolus, intact cough reflex Grade IV = aspiration of > 10 % of the bolus, reduced cough reflex - Penetration-Aspiration Scale Score Thin Liquid via teaspoon Result: 2= enter airway/above vocal folds/ejected Thin Liquid via teaspoon Trial 2 Result: 7= enters airways/below vocal folds/not ejected despite effort - Weak cough elicited, not effective to clear aspirated contrast from below the surface of the VF Thin Liquid via small single sip from cup Result: 5= enters airways/contacts vocal folds/not ejected [place] Thick Liquid via small single sip from cup Result: 2= enter airway/above vocal folds/ejected - Post prandial aspiration of previous trial [place] Thick Liquid via small single sip from cup Chin tuck Result: 2= enter airway/above vocal folds/ejected - Needed head tilt for A-P transport, then utilized chin tuck [place] Thick Liquid via small single sip from cup Trial 2 Result: 2= enter airway/above vocal folds/ejected Thin Liquid via single sip from straw Comment: Could not score, unable to suction sip from straw Thin Liquid via small single sip from cup Effortful swallow Result: 2= enter airway/above vocal folds/ejected A-P View: [place] Thick Liquid via small single sip from cup Comment: Majority of bolus cleared oral and pharyngeal cavity along L side. A-P View: [place] Thick Liquid via small single sip from cup head tilt right Comment: Bolus cleared along either side of throat, mostly spilling from L oral cavity. Pt cleared bolus in a more timely manner, but required equal number of swallows to clear as previous trial (4 swallows). A-P View: [place] Thick Liquid via small single sip from cup head tilt right at end of multiple swallows to clear residue Comment: Difficult to interpret image due to darkness. [place] Thick Liquid via small single sip from cup head tilt right Result: 2= enter airway/above vocal folds/ejected - Oral Phase Labial Seal: Escape beyond interlabial space; no extension beyond raquel border Tongue Control During Bolus Hold: Posterior escape of greater than half of bolus Bolus Transport/Lingual Motion: Minimal to no tongue motion - DNT solid cookie due to minimal tongue motion for A-P transport Oral Residue: Majority of bolus remaining - Pharyngeal Phase Initiation of Pharyngeal Swallow: Bolus head in pyriforms Soft Palate Elevation: No bolus between soft palate and pharyngeal wall Laryngeal Elevation: Partial superior movement thyroid cart/partial apprx aryt- epig petiole Anterior Hyoid Excursion: No anterior movement Epiglottic Movement: No inversion Laryngeal Vestibule Closure at Height of Swallow: Incomplete; narrow column of air/contrast in laryngeal vestibule Pharyngeal Stripping Wave: Present - diminished Pharyngoesophageal Segment Opening: Parital distension and partial duration; parital obstruction of flow Tongue Base Retraction: Narrow column of contrast between tongue base & post. pharyngeal wall Pharyngeal Residue: Collection of residue within or on pharyngeal structures - Treatment Strategies Effects of treatment strategies attemped:: Head tilt backwards = effective in facilitating A-P transport. Head tilt right = somewhat effective in clearing L oral cavity of residue. Straw = not effective. Effortful swallow = somewhat effective. Chin tuck = not effective - too difficult to initiate A-P transport. - Diagnosis/Impression Diagnosis: Severe oral dysphagia (R13.11), Moderate pharyngeal dysphagia (R13.13) Impression: The patient presents with severely impaired lingual ROM resulting in poor bolus formation, bolus control, and A-P transit. She utilized head tilt backwards to facilitate A-P bolus transport during the study. She has moderate-severe oral residues. Use of a R sided head tilt was somewhat effective in clearing oral residue from a sulcus present in the L posterior tongue. She informed ATMOSPHERIC TECHNICIAN she prefers use of oral swish and spit to clear residue. The pharyngeal phase of the swallow is marked by decreased airway protection and decreased pharyngeal contraction. Laryngeal elevation is decreased, but appears to be slightly improved from previous study. She continues with little to no anterior hyoid excursion and epiglottic inversion. She demonstrates mild pharyngeal residues after use of multiple swallows. The patient demonstrated SILENT post prandial aspiration of thin liquids. She had aspiration occur during the swallow with weak cough. As compared to the previous study, the patient had significantly decreased amount of aspirated thin liquid contrast. She had penetration above the vocal folds with full ejection from the laryngeal vestibule of nectar thick liquids. SEE PAS scoring above for additional information regarding penetration and aspiration observed during the study. - Recommendations Diet: [place]-thick Liquids - FFWP Comment: Swish and rinse oral cavity with water or mouthwash following completion of nectar thick liquids, Consider use of R sided head tilt to clear sips from L sulci in oral cavity, Small Sips via cup, Slow Rate - Sips one at a time, Multiple Swallows, Sitting upright, Remain sitting upright for 30 minutes after PO intake. Will recommend continued use of PEG tube to meet nutrition/hydration needs. Will consider decreasing tube feedings if the patient is able to consume more nutrition orally with nectar thick liquids. Recommend Repeat Modified Barium Swallow: TBD - Consider repeat study in 3-6 months if good adherence to exercise program and deemed clinically appropriate by ATMOSPHERIC TECHNICIAN. Need for Skilled Speech Therapy Services: Yes Comment: Will recommend the patient for continued outpatient dysphagia therapy to maintain optimal swallow function and address deficits in oropharyngeal swallow function. Would consider the patient for continued oropharyngeal strengthening to improve laryngeal elevation, hyoid excursion, and duration of UES opening. The patient would benefit from thorough education regarding diet recommendations and recommended compensatory strategies. Education Completed: 1. Described result of evaluation., 7. Pt requires further education on strategies & risks. - Status Active ST Patient: Active - Contact Information [facility] Speech Therapy:: China Kahn M.A. [facility]-ATMOSPHERIC TECHNICIAN Speech-Language Pathologist [facility] [address] [place] [address] [email or web address] [phone] 06/20/21 16:58
== END | disposition home or self-care (01) ==
LOC: RAD 12:58
PROVIDERS: Referring Provider Radiology Radiation Oncology; Visit Provider Radiology Radiation Oncology
DX: C02.8 Malignant neoplasm of overlapping sites of tongue (principal)
CPT/HCPCS: 74230; 92611

== ENCOUNTER 2021-09-05 11:30 | Outpatient (RCR) | payer MEDICAID, SELFPAY ==
[2020-03-07 11:16] VITALS: BMI 19.4
--- NOTE | 2022-01-19 11:20 | HP.SP.DC ---
ST Discharge Summary - Discharged: Discharge: The patient participated in dysphagia and articulation therapy secondary due tongue cancer from 12/14/20-09/05/2021. She participated in a total of 21 sessions and 3 MBSS during POC. She was most recently on nectar thick liquid diet with FFWP and PEG tube for meeting primary needs of nutrition/hydration. In August, she was unable to return to for insurance and financial reasons. She is planned for MBSS 01/19/2022. Will recommend OP ST Evaluation if warranted following MBSS to provide further dysphagia treatment. Additionally, will recommend further ST to address deficits in articulation if pt wishes to return to OP therapy to work on her speech clarity.
== END 2021-09-05 19:00 | disposition home or self-care (01) ==
LOC: SP 11:30
PROVIDERS: Referring Provider Student in an Organized Health Care Education/Training Program; Visit Provider Student in an Organized Health Care Education/Training Program
DX: C02.8 Malignant neoplasm of overlapping sites of tongue (principal)
CPT/HCPCS: 92507; 92526

== ENCOUNTER 2021-09-05 13:30 | Outpatient (RCR) | payer MEDICAID, MEDICARE, SELFPAY ==
[2020-03-07 11:16] VITALS: BMI 19.4
--- NOTE | 2021-07-26 15:37 | HP.OTEVAL ---
Patient's Visit Information ALEXYS CHATMAN is a 65 year old F, referred to Occupational Therapy by Dr. Ryan Hennessy DO, with a diagnosis of tongue cancer, malignant neoplasm. Date of Evaluation: 07/26/21 Occupational Therapist: Sowmya Lemus, SAMARIAR/Ciro, CHT - Subjective pt states she was dx with tongue cancer - states she has had finished her radiation about a year ago- pt states her speech therapist indicated OT eval for possible lymphedema. 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 From 03/24/2020 - 05/06/2020: received 6000 cGy delivered to the postoperative flap based reconstruction and remaining oral tongue as well as the right neck levels 1B through 4 and 5400 cGy delivered to the left neck levels 1B through 4 as well as the bilateral supraclavicular fossa. pt states she would like to know what she can do with the bulge or pocket on the right side of her neck- - Objective along right side neck scar noted firm tissue ( possible scar tissue). and noted scar adhesions - Sensation Sensation Comments: reports numbness of right ear lob and tongue and mouth - Goals Demonstrate a 20% reduction in edema by d/c: Yes Demonstrate adequate knowledge of self-massage by 2nd week: Yes Demonstrate adequate knowledge skin care/prec by 2nd week: Yes Demonstrate adequate knowledge therapeutic exercises by d/c: Yes Select approp compression garment w/donning/care/wear by d/c: Yes Voice need to replace compression garment every 4-6mo by dc: Yes - Rehabilitation General Assessment: pt demo with need of scar mtg along neck line right side with pocket of fluid/scar tissue noticeably bulging out- Pt would benefit from skilled OT services 2-4 visits to ed. pt on home mtg of scar and lymphedema mtg. pt demo understanding and agree to POC. Rehabilitation Potential: Questionable - Anticipated Interventions Manual Lymph Drainage, Education re Life-long lymphedema Management, Education re Skin Care and Precautions, Education re Self Massage Techniques, Education re Correct Donning Tech,Care&Wearing Sched Comp Garments, Caregiver Training, Home Program - Visit Plan TEXT: Thank you for the opportunity to evaluate your patient. For Medicare and Medicare HMO plans, please review the plan of care and approve it. It will need to be FAXED BACK to us at [phone] for Medicare purposes. Please let me know if there are questions or concerns regarding this plan of care. Physician Signature: Date:
--- NOTE | 2021-09-05 13:55 | HP.OTDCSUM ---
It has been my pleasure to treat ALEXYS JOY under orders from Dr. Ryan Hennessy DO, for the diagnosis of tongue cancer, malignant neoplasm for a total of 6 visit(s). Please see the following information for a summary of their discharge status. % Improvement: 80 Objective/Function: head -chin 61cm. neck 31cm. scar 19cmlong /16cm with. pt states when she gets 66 she well join [employer] to initiate a seated strengthening program- mid sep. pt will start this program at [facility]. Patient Goals: Learn how to Manage Lymphedema Demonstrate a 20% reduction in edema by d/c: Yes Demonstrate adequate knowledge of self-massage by 2nd week: Yes Demonstrate adequate knowledge skin care/prec by 2nd week: Yes Demonstrate adequate knowledge therapeutic exercises by d/c: Yes Select approp compression garment w/donning/care/wear by d/c: Yes Voice need to replace compression garment every 4-6mo by dc: Yes Plan: D/C to cont with HEP of scar mtg and self manual lymph massage- along with using compression device for head/neck. Discharge Comments: pt demo understanding of her scar mtg and HEP to maintain her ROM - skin mobility and use of compression devices- pt agree with d/c If there are questions or concerns regarding this patient's occupational therapy, please fell free to call me at [phone]. Thank you for the referral of this patient. Sincerely, Sowmya Lemus, OTR/L, CHT
== END 2021-09-05 19:00 | disposition home or self-care (01) ==
LOC: OT 13:30
PROVIDERS: Referring Provider Student in an Organized Health Care Education/Training Program; Visit Provider Student in an Organized Health Care Education/Training Program
DX: C02.8 Malignant neoplasm of overlapping sites of tongue
CPT/HCPCS: 92507; 92526; 97140; 97166; 97530

== ENCOUNTER → 2022-01-19 | Outpatient (CLI) | payer MEDICARE, MEDICAID, SELFPAY ==
[2020-03-07 11:16] VITALS: BMI 19.4
--- NOTE | 2022-01-19 14:00 | SP.MBSS_ITS ---
Modified Barium Swallow - Patient Information Study Date: 01/19/22 Study Time: 13:00 Direct Billable Minutes: 105 Total Minutes procedure & reportin Diagnosis: Tongue Cancer (C02.9) Referring Physician: Ryan Hennessy Reason for Referral: Objectively assess swallow function, risk for aspiration, and determine recommendations for least restrictive diet textures and compensatory strategies to improve safety of swallow. 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 From 03/24/2020 - 05/06/2020: received radiation treatment. Pt reports i in 2-4 speech therapy treatments w/ [employer] at [facility] numerous months ago. She had a FEES at that time. She has participated in 21 speech therapy sessions at [facility] and 3 MBSS. Most recent MBS study 06/19/2021 revealed aspiration of thin liquids. Study recommended [place]-thick Liquids with use of strategies to decrease risk for aspiration. FFWP also recommended from the study. She had to discontinue speech therapy in August 2021 due to a change in insurance and no longer having coverage for ST at [facility]. Recently, she switched to an insurance that will cover ST at [facility]. She was recommended for updated MBSS prior to return to therapy to monitor swallow function. She is at risk for worsening dysphagia s/p radiation. Pt reports increasing oral intake at home since August. She now consumes 1 cup of nectar thickened coffee, 6-8 cups of water. By PEG, she utilizes 3-4 cartons daily. She reports completing 80 effortful swallows per day, tongue ROM exercises, and jaw stretches. She wishes to return to ST for both dysphagia and speech therapy. Current Diet Ordered: [place] thick liquids - FFWP Mental Status: WNL Respiratory Status: Oxygenating on Room Air - Penetration-Aspiration Scale Penetration-Aspiration Scale: OBJECTIVE ASSESSMENT OF SWALLOW FUNCTION (QUANTITATIVE ? PER TRIAL): PENETRATION / ASPIRATION SCALE (BULL): 1 = does not enter airway 2 = enters airway/above vocal folds/ejected 3 = enters airway/above vocal folds/not ejected 4 = enters airway/contacts vocal folds/ejected 5 = enters airway/contacts vocal folds/not ejected 6 = enters airway/below vocal folds/ejected 7 = enters airway/below vocal folds/not ejected despite effort 8 = enters airway/below vocal folds/no effort VIDEOFLOROSCOPIC SCALE SCORE (BULL): Grade I = aspiration of material that has penetrated into the laryngeal vestibule, intact cough reflex Grade II = aspiration < 10 % of the bolus, intact cough reflex Grade III = aspiration of < 10 % of the bolus, reduced cough reflex or aspiration of > 10 % of the bolus, intact cough reflex Grade IV = aspiration of > 10 % of the bolus, reduced cough reflex - Penetration-Aspiration Scale Score Thin Liquid via teaspoon Result: 3= enters airways/above vocal folds/not ejected Thin Liquid via teaspoon Trial 2 Result: 3= enters airways/above vocal folds/not ejected Thin Liquid via small single sip from cup Result: 5= enters airways/contacts vocal folds/not ejected Thin Liquid via small single sip from cup Effortful swallow Result: 3= enters airways/above vocal folds/not ejected Thin Liquid via small single sip from cup cough and re-swallow Result: 5= enters airways/contacts vocal folds/not ejected - cleared contrast from the vocal folds, only trace residue remaining in LV after cough [place] Thick Liquid via small single sip from cup Result: 2= enter airway/above vocal folds/ejected Comment: Pt utilized water swish and spit to clear oral cavity after the trial - no aspiration of nectar thick contrast observed. Honey Thick Liquid via small single sip from cup Result: 3= enters airways/above vocal folds/not ejected - poor oral clearance requiring swish and spit with water Thin Liquid via small single sip from cup cough and re-swallow Trial 2 Result: 4= enters airway/contacts vocal folds/ejected - Oral Phase Labial Seal: Escape progressing to mid-chin Tongue Control During Bolus Hold: Posterior escape of greater than half of bolus Bolus Transport/Lingual Motion: Minimal to no tongue motion - minimal tongue motion - head tilt assists A-P transport throughout the study Oral Residue: Residue collection on oral structures - Pharyngeal Phase Initiation of Pharyngeal Swallow: Bolus head in pyriforms Soft Palate Elevation: No bolus between soft palate and pharyngeal wall Laryngeal Elevation: Partial superior movement thyroid cart/partial apprx aryt- epig petiole Anterior Hyoid Excursion: Partial anterior movement - little to no anterior movment Epiglottic Movement: No inversion Laryngeal Vestibule Closure at Height of Swallow: Incomplete; narrow column of air/contrast in laryngeal vestibule Pharyngeal Stripping Wave: Present - diminished Pharyngoesophageal Segment Opening: Parital distension and partial duration; parital obstruction of flow Tongue Base Retraction: Narrow column of contrast between tongue base & post. pharyngeal wall Pharyngeal Residue: Collection of residue within or on pharyngeal structures - Treatment Strategies Effects of treatment strategies attemped:: Effortful swallow = somewhat effective. Cough and re-swallow = somewhat effective. Multiple swallows = effective. Head tilt backwards to assist A-P transport = effective. - Diagnosis/Impression Diagnosis: Moderate-severe oropharyngeal phase dysphagia (R13.12) Impression: The oral phase is marked by.... -Severely restricted tongue ROM s/p partial glossectomy. Head tilt backward is used to assist A-P transport of liquids. -Poor bolus control with premature posterior loss of >1/2 of various trials to the laryngeal vestibule and pyriforms prior to swallow onset. -Mild-moderate oral residues after the swallow, which increase as viscosity increases. Use of swish and spit helps to clear oral cavity of residues. -Did not test mastication or viscosities thicker than honey thick due to poor capabilities for A-P transport. The pharyngeal phase is marked by... -Mildly decreased tongue base retraction, mild-moderate deficits in pharyngeal stripping wave, mild-moderate deficits in UES opening/duration, the patient presented with mild-moderate pharyngeal residues, which mostly cleared with independent use of multiple swallows. -Little to no anterior hyoid excursion, no epiglottic inversion, and mild- moderately decreased laryngeal elevation resulting in decreased airway closure during the swallow. -No aspiration observed during the study. Thin liquids via cup demonstrated laryngeal penetration to the vocal folds, which did not fully eject; however, with use of cough and re-swallow only trace residue remained in the laryngeal vestibule after the swallow and no residue was present on vocal folds. Pt demonstrated reflexive throat clear to penetration of thin liquids to the vocal folds in 2/3 trials (other trial pt was cued for cough and re-swallow strategy). Effortful swallow appeared to decrease depth of laryngeal penetration. - Recommendations Diet: [place]-thick Liquids - [place] Free Water Protocol (FFWP) Comment: Head tilt for A-P transport of nectar thick liquids. After consumption of nectar thick liquids with recommend oral care via swish and spit with mouthwash, wait 30 min to consume thin water. Compensatory Strategies: Small Sips - with FFWP, recommend intermittent cough and re-swallow, Slow Rate, Multiple Swallows, Sitting upright Recommend Repeat Modified Barium Swallow: Yes - Repeat MBSS in 6 month to monitor risk for worsening dysphagia and aspiration risk s/p radiation. Need for Skilled Speech Therapy Services: Yes Comment: Will recommend the patient for outpatient dysphagia therapy to address deficits in oropharyngeal swallow function, as well as dysarthria, secondary to tongue cancer with partial glossectomy. Will recommend the patient for oropharyngeal strengthening to improve lingual ROM, laryngeal elevation, hyoid excursion, pharyngeal contraction, and duration of UES opening (CTAR, Nora, effortful swallow, lingual ROM exercises). The patient would benefit from thorough education regarding diet recommendations and recommended compensatory strategies. Will recommend trials of thin liquids with [employer] with use of multiple, effortful swallows and cough and re-swallow. The patient requires further education re: FFWP with emphasis on importance of oral care following consumption of nectar thickened consistencies. Education Completed: 1. Described result of evaluation., 2. Pt understands evaluation & agrees with goals and treatment plan., 4. Family/caregivers understand evaluation & agree w/ goals & tx plan., 7. Pt requires further education on strategies & risks. - Status Active ST Patient: Active - Contact Information [facility] Speech Therapy:: China Kahn M.A. [facility] Speech-Language Pathologist [facility] [address] [address] [email or web address] [phone] 01/19/22 14:18
== END | disposition home or self-care (01) ==
LOC: RAD 12:55
PROVIDERS: Referring Provider Student in an Organized Health Care Education/Training Program; Visit Provider Student in an Organized Health Care Education/Training Program
DX: C02.9 Malignant neoplasm of tongue, unspecified (principal)
CPT/HCPCS: 74230; 92611

== ENCOUNTER → 2022-08-24 | Outpatient (CLI) | payer MEDICARE, SELFPAY ==
[2020-03-07 11:16] VITALS: BMI 19.4
--- NOTE | 2022-08-24 14:42 | SP.MBSS_ITS ---
Modified Barium Swallow Patient Information Study Date: 08/24/22 Study Time: 13:00 Direct Billable Minutes: 180 Total Minutes procedure & reportin Diagnosis: Tongue Cancer (C02.9) Referring Physician: Ryan Hennessy Reason for Referral: Objectively assess swallow function, risk for aspiration and determine recommendations for LRD and compensatory strategies to improve safety of the swallow. 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 From 03/24/2020 - 05/06/2020: received radiation treatment. Pt reports 2-4 speech therapy treatments w/ AIRBRUSH ARTISTYesy at [facility] numerous months ago. She had a FEES at that time. She has participated in 21 speech therapy sessions at [facility] and 3 MBSS. Most recent MBS study in January 2022 which recommended NTL w/ implementation of FFWP. See report for full details. She reports seeing [place] MICHAELS regularly, however d/t change in insurance has not seen [place] since May 2022. She was recommended for updated MBSS prior to return to therapy to monitor swallow function. She is at risk for worsening dysphagia s/p radiation. Patient reports that the only food she is having orally is nectar thick coffee and FFWP. Patient reported her goal would be to tolerate a puree soup such as a cream of chicken blended. By PEG, she utilizes 3-4 cartons daily. She reports completing oropharyngeal exercises re: effortful swallows per day, tongue ROM exercises, and jaw stretches. She has appointment w/ Trini Thao next week for OP Speech Therapy Current Diet Ordered: PEG for primary nutrition/hydration w/ NTL, FFWP Mental Status: WNL Respiratory Status: Oxygenating on Room Air Penetration-Aspiration Scale Penetration-Aspiration Scale: OBJECTIVE ASSESSMENT OF SWALLOW FUNCTION (QUANTITATIVE ? PER TRIAL): PENETRATION / ASPIRATION SCALE (BULL): 1 = does not enter airway 2 = enters airway/above vocal folds/ejected 3 = enters airway/above vocal folds/not ejected 4 = enters airway/contacts vocal folds/ejected 5 = enters airway/contacts vocal folds/not ejected 6 = enters airway/below vocal folds/ejected 7 = enters airway/below vocal folds/not ejected despite effort 8 = enters airway/below vocal folds/no effort VIDEOFLOROSCOPIC SCALE SCORE (BULL): Grade I = aspiration of material that has penetrated into the laryngeal vestibule, intact cough reflex Grade II = aspiration < 10 % of the bolus, intact cough reflex Grade III = aspiration of < 10 % of the bolus, reduced cough reflex or aspiration of > 10 % of the bolus, intact cough reflex Grade IV = aspiration of > 10 % of the bolus, reduced cough reflex Penetration-Aspiration Scale Score Thin Liquid via teaspoon: Result: 5= enters airways/contacts vocal folds/not ejected Thin Liquid via teaspoon Trial 2: Result: 5= enters airways/contacts vocal folds/not ejected Thin Liquid via teaspoon Trial 3: Result: 5= enters airways/contacts vocal folds/not ejected Thin Liquid via single sip from cup: Result: 5= enters airways/contacts vocal folds/not ejected Thin Liquid via single sip from cup Trial 2: Result: 2= enter airway/above vocal folds/ejected [place] Thick Liquid via single sip from cup : Result: 1= does not enter airway Moist Puree: Result: 1= does not enter airway Thin Liquid via single sip from cup Trial 3: Result: 8= enters airway/below vocal folds/no effort Oral Phase Labial Seal: Escape progressing to mid-chin Tongue Control During Bolus Hold: Posterior escape of less than half of bolus Bolus Transport/Lingual Motion: Minimal to no tongue motion Oral Residue: Majority of bolus remaining Pharyngeal Phase Initiation of Pharyngeal Swallow: Bolus head in pyriforms Soft Palate Elevation: No bolus between soft palate and pharyngeal wall Laryngeal Elevation: Partial superior movement thyroid cart/partial apprx aryt- epig petiole Anterior Hyoid Excursion: Partial anterior movement Epiglottic Movement: No inversion Laryngeal Vestibule Closure at Height of Swallow: Incomplete; narrow column of air/contrast in laryngeal vestibule Pharyngeal Stripping Wave: Present - diminished Pharyngoesophageal Segment Opening: Parital distension and partial duration; parital obstruction of flow Tongue Base Retraction: Narrow column of contrast between tongue base & post. pharyngeal wall Pharyngeal Residue: Collection of residue within or on pharyngeal structures Treatment Strategies Effects of treatment strategies attemped:: cough and re- swallow = not effective Diagnosis/Impression Diagnosis: severe oropharyngeal dysphagia R13.12 Impression: Patient presents w/ severe oropharyngeal dysphagia. Oral phase primarily marked by.... - severely restricted tongue ROM s/p partial glossectomy. - poor bolus control w/ premature posterior loss of >1/2 of various trials to the laryngeal vestibule and pyriforms prior to swallow onset. - moderate oral residue post deglutition which did worsen w/ thicker viscosities. Patient required 5-8 swallows to clear 1 tsp of thin liquid and nectar thick liquid. Patient used a swish / spit technique to clear oral residues which did significantly improve. - attempted moist puree w/ no AP transit despite head tilt backwards. W/ liquid wash, patient was able to wash some of the puree down. Remaining moist puree was removed w/ swish / spit technique. Pharyngeal phase primarily marked by... -mildly decreased tongue base retraction, mild-moderate deficits in pharyngeal stripping wave, mild-moderate deficits in UES opening/duration, the patient presented with mild-moderate pharyngeal residues, which mostly cleared with independent use of multiple swallows. -little to no anterior hyoid excursion, no epiglottic inversion, and mild- moderately decreased laryngeal elevation resulting in decreased airway closure during the swallow. - penetration to the vocal folds that did not fully eject was observed w/ thin via tsp and thin via cup. Patient did present w/ reflexive throat clear w/ penetration. Cough and re-swallow was not effective. - silent aspiration observed w/ additional trial of thin via cup. Cough and re- swallow was not effective. Recommendations Diet: [place]-thick Liquids (w/ FFWP) Comment: Continue w/ prior MBSS recommendations to use head tilt for AP transport of NTL. Use swish / spit technique for oral residue remaining in the oral cavity post deglutition. Compensatory Strategies: Small Sips, Slow Rate, Multiple Swallows and Sitting upright Recommend Repeat Modified Barium Swallow: Yes Comment: Recommend repeat MBSS in 6 months to monitor risk for worsening dysphagia and aspiration risk s/p radiation. Need for Skilled Speech Therapy Services: Yes Comment: Will recommend the patient for outpatient dysphagia therapy to address deficits in oropharyngeal swallow function, as well as dysarthria, secondary to tongue cancer with partial glossectomy. Will recommend the patient for oropharyngeal strengthening to improve lingual ROM, laryngeal elevation, hyoid excursion, pharyngeal contraction, and duration of UES opening (CTAR, Nora, effortful swallow, lingual ROM exercises). The patient would benefit from thorough education regarding diet recommendations and recommended compensatory strategies. Will recommend trials of thin liquids with AIRBRUSH ARTIST with use of multiple, effortful swallows and cough and re-swallow. The patient requires further education re: FFWP with emphasis on importance of oral care following consumption of nectar thickened consistencies. Patient reports having appointment w/ Trini Thao AIRBRUSH ARTIST next week. Education Completed: 1. Described result of evaluation., 2. Pt understands evaluation & agrees with goals and treatment plan., 4. Family/caregivers understand evaluation & agree w/ goals & tx plan. and 7. Pt requires further education on strategies & risks. Status Active ST Patient: Active Contact Information [facility] Speech Therapy:: Adriana Ba M.A. [facility]-AIRBRUSH ARTIST Speech-Language Pathologist [facility] [address] [place] [address] [email or web address] [phone]
== END | disposition home or self-care (01) ==
PROVIDERS: Referring Provider Student in an Organized Health Care Education/Training Program; Visit Provider Student in an Organized Health Care Education/Training Program
DX: C02.9 Malignant neoplasm of tongue, unspecified (principal)
CPT/HCPCS: 74230; 92611

== ENCOUNTER 2023-03-15 11:30 | Outpatient (RCR) | payer MEDICARE, MEDICAID, SELFPAY ==
[2020-03-07 11:16] VITALS: BMI 19.4
--- NOTE | 2022-01-30 11:07 | ST ---
[facility] Speech Pathology [address] [place] [address] Modified Barium Swallow Study MR#: [id number] Acct: [id number] Name: ALEXYS CHATMAN Rep #: [id number] : 1955 66 From: China Kahn M.A., [facility] Modified Barium Swallow - Patient Information Study Date: 01/19/22 Study Time: 13:00 Direct Billable Minutes: 105 Total Minutes procedure & reportin Diagnosis: Tongue Cancer (C02.9) Referring Physician: Ryan Hennessy Reason for Referral: Objectively assess swallow function, risk for aspiration, and determine recommendations for least restrictive diet textures and compensatory strategies to improve safety of swallow. 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 From 03/24/2020 - 05/06/2020: received radiation treatment. Pt reports i in 2-4 speech therapy treatments w/ [employer] at [facility] numerous months ago. She had a FEES at that time. She has participated in 21 speech therapy sessions at [facility] and 3 MBSS. Most recent MBS study 06/19/2021 revealed aspiration of thin liquids. Study recommended [place]-thick Liquids with use of strategies to decrease risk for aspiration. FFWP also recommended from the study. She had to discontinue speech therapy in August 2021 due to a change in insurance and no longer having coverage for ST at [facility]. Recently, she switched to an insurance that will cover ST at [facility]. She was recommended for updated MBSS prior to return to therapy to monitor swallow function. She is at risk for worsening dysphagia s/p radiation. Pt reports increasing oral intake at home since August. She now consumes 1 cup of nectar thickened coffee, 6-8 cups of water. By PEG, she utilizes 3-4 cartons daily. She reports completing 80 effortful swallows per day, tongue ROM exercises, and jaw stretches. She wishes to return to [facility] for both dysphagia and speech therapy. Current Diet Ordered: [place] thick liquids - FFWP Mental Status: WNL Respiratory Status: Oxygenating on Room Air - Penetration-Aspiration Scale Penetration-Aspiration Scale: OBJECTIVE ASSESSMENT OF SWALLOW FUNCTION (QUANTITATIVE ? PER TRIAL): PENETRATION / ASPIRATION SCALE (BULL): 1 = does not enter airway 2 = enters airway/above vocal folds/ejected 3 = enters airway/above vocal folds/not ejected 4 = enters airway/contacts vocal folds/ejected 5 = enters airway/contacts vocal folds/not ejected 6 = enters airway/below vocal folds/ejected 7 = enters airway/below vocal folds/not ejected despite effort 8 = enters airway/below vocal folds/no effort VIDEOFLOROSCOPIC SCALE SCORE (BULL): Grade I = aspiration of material that has penetrated into the laryngeal vestibule, intact cough reflex Grade II = aspiration < 10 % of the bolus, intact cough reflex Grade III = aspiration of < 10 % of the bolus, reduced cough reflex or aspiration of > 10 % of the bolus, intact cough reflex Grade IV = aspiration of > 10 % of the bolus, reduced cough reflex - Penetration-Aspiration Scale Score Thin Liquid via teaspoon Result: 3= enters airways/above vocal folds/not ejected Thin Liquid via teaspoon Trial 2 Result: 3= enters airways/above vocal folds/not ejected Thin Liquid via small single sip from cup Result: 5= enters airways/contacts vocal folds/not ejected Thin Liquid via small single sip from cup Effortful swallow Result: 3= enters airways/above vocal folds/not ejected Thin Liquid via small single sip from cup cough and re-swallow Result: 5= enters airways/contacts vocal folds/not ejected - cleared contrast from the vocal folds, only trace residue remaining in LV after cough [place] Thick Liquid via small single sip from cup Result: 2= enter airway/above vocal folds/ejected Comment: Pt utilized water swish and spit to clear oral cavity after the trial - no aspiration of nectar thick contrast observed. Honey Thick Liquid via small single sip from cup Result: 3= enters airways/above vocal folds/not ejected - poor oral clearance requiring swish and spit with water Thin Liquid via small single sip from cup cough and re-swallow Trial 2 Result: 4= enters airway/contacts vocal folds/ejected - Oral Phase Labial Seal: Escape progressing to mid-chin Tongue Control During Bolus Hold: Posterior escape of greater than half of bolus Bolus Transport/Lingual Motion: Minimal to no tongue motion - minimal tongue motion - head tilt assists A-P transport throughout the study Oral Residue: Residue collection on oral structures - Pharyngeal Phase Initiation of Pharyngeal Swallow: Bolus head in pyriforms Soft Palate Elevation: No bolus between soft palate and pharyngeal wall Laryngeal Elevation: Partial superior movement thyroid cart/partial apprx aryt-epig petiole Anterior Hyoid Excursion: Partial anterior movement - little to no anterior movment Epiglottic Movement: No inversion Laryngeal Vestibule Closure at Height of Swallow: Incomplete; narrow column of air/contrast in laryngeal vestibule Pharyngeal Stripping Wave: Present - diminished Pharyngoesophageal Segment Opening: Parital distension and partial duration; parital obstruction of flow Tongue Base Retraction: Narrow column of contrast between tongue base & post. pharyngeal wall Pharyngeal Residue: Collection of residue within or on pharyngeal structures - Treatment Strategies Effects of treatment strategies attemped:: Effortful swallow = somewhat effective. Cough and re-swallow = somewhat effective. Multiple swallows = effective. Head tilt backwards to assist A-P transport = effective. - Diagnosis/Impression Diagnosis: Moderate-severe oropharyngeal phase dysphagia (R13.12) Impression: The oral phase is marked by.... -Severely restricted tongue ROM s/p partial glossectomy. Head tilt backward is used to assist A-P transport of liquids. -Poor bolus control with premature posterior loss of >1/2 of various trials to the laryngeal vestibule and pyriforms prior to swallow onset. -Mild-moderate oral residues after the swallow, which increase as viscosity increases. Use of swish and spit helps to clear oral cavity of residues. -Did not test mastication or viscosities thicker than honey thick due to poor capabilities for A-P transport. The pharyngeal phase is marked by... -Mildly decreased tongue base retraction, mild-moderate deficits in pharyngeal stripping wave, mild-moderate deficits in UES opening/duration, the patient presented with mild-moderate pharyngeal residues, which mostly cleared with independent use of multiple swallows. -Little to no anterior hyoid excursion, no epiglottic inversion, and mild-moderately decreased laryngeal elevation resulting in decreased airway closure during the swallow. -No aspiration observed during the study. Thin liquids via cup demonstrated laryngeal penetration to the vocal folds, which did not fully eject; however, with use of cough and re-swallow only trace residue remained in the laryngeal vestibule after the swallow and no residue was present on vocal folds. Pt demonstrated reflexive throat clear to penetration of thin liquids to the vocal folds in 2/3 trials (other trial pt was cued for cough and re-swallow strategy). Effortful swallow appeared to decrease depth of laryngeal penetration. - Recommendations Diet: [place]-thick Liquids - [place] Free Water Protocol (FFWP) Comment: Head tilt for A-P transport of nectar thick liquids. After consumption of nectar thick liquids with recommend oral care via swish and spit with mouthwash, wait 30 min to consume thin water. Compensatory Strategies: Small Sips - with FFWP, recommend intermittent cough and re-swallow, Slow Rate, Multiple Swallows, Sitting upright Recommend Repeat Modified Barium Swallow: Yes - Repeat MBSS in 6 month to monitor risk for worsening dysphagia and aspiration risk s/p radiation. Need for Skilled Speech Therapy Services: Yes Comment: Will recommend the patient for outpatient dysphagia therapy to address deficits in oropharyngeal swallow function, as well as dysarthria, secondary to tongue cancer with partial glossectomy. Will recommend the patient for oropharyngeal strengthening to improve lingual ROM, laryngeal elevation, hyoid excursion, pharyngeal contraction, and duration of UES opening (CTAR, Nora, effortful swallow, lingual ROM exercises). The patient would benefit from thorough education regarding diet recommendations and recommended compensatory strategies. Will recommend trials of thin liquids with [employer] with use of multiple, effortful swallows and cough and re-swallow. The patient requires further education re: FFWP with emphasis on importance of oral care following consumption of nectar thickened consistencies. Education Completed: 1. Described result of evaluation., 2. Pt understands evaluation & agrees with goals and treatment plan., 4. Family/caregivers understand evaluation & agree w/ goals & tx plan., 7. Pt requires further education on strategies & risks. - Status Active ST Patient: Active - Contact Information [facility] Speech Therapy:: China Kahn M.A. [facility] Speech-Language Pathologist [facility] [address] [place] [address] [email or web address] [phone] 01/19/22 14:18 01/19/22 1446 <Electronically signed by China Kahn M.A., [facility]> Date/Time China Kahn M.A., [facility] Co-Signature Required for all Medicare patients Date/Time Co-Signature
--- NOTE | 2022-01-30 14:42 | HP.SP.EV_ITS ---
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 From 03/24/2020 - 05/06/2020 the patient received radiation treatment. Pt reports participating in 2-4 speech therapy treatments w/ [employer], Yesy, at [facility] just after surgery and during radiation. She had a FEES at that time. She has participated in 21 speech therapy sessions at [facility] and 4 MBSS. She had advanced her diet from NPO with FFWP (PEG for primary means of nutrition and hydration) to [place] thick liquids with FFWP and use of PEG for maintaining appropriate nutrition and hydration. She had to discontinue speech therapy in August 2021 due to a change in insurance and no longer having coverage for ST at [facility]. Recently, she switched to an insurance that will cover ST at [facility]. She was recommended for updated MBSS prior to return to therapy to monitor swallow function. She is at risk for worsening dysphagia s/p radiation. Pt reports increasing oral intake at home since August. She now consumes 1 cup of nectar thickened coffee, 6-8 cups of water. By PEG, she utilizes 3-4 cartons daily. She reports completing 80 effortful swallows per day, tongue ROM exercises, and jaw stretches. She wishes to return to [facility] for both dysphagia and speech therapy. Most recent MBSS from 01/19/2022 attached in note. It recommended continuing [place]-thick Liquids - Champion Free Water Protocol (FFWP); Head tilt for A-P transport of nectar thick liquids. After consumption of nectar thick liquids with recommend oral care via swish and spit with mouthwash, wait 30 min to consume thin water. Continue to utilize PEG tube to provide self adequate nutrition and hydration. Compensatory Strategies: Small Sips - with FFWP, recommend intermittent cough and re-swallow, Slow Rate, Multiple Swallows, Sitting upright; Recommend Repeat Modified Barium Swallow: Yes - Repeat MBSS in 6 month to monitor risk for worsening dysphagia and aspiration risk s/p radiation. Will recommend the patient for return to outpatient dysphagia therapy to address deficits in oropharyngeal swallow function, as well as dysarthria, secondary to tongue cancer with partial glossectomy. Smoking Status: Former smoker Hx Smoking Cessation Date: 02/08/20 Hx Tobacco Use: Yes - Pain Is pain an issue with your current prescribed condition?: No Patient Allergies - Allergies Allergies No Known Allergies Allergy (Verified 04/03/21 14:26) Subjective Dysphagia - Symptoms Reported Symptoms/Problems with: Coughing, Weight Loss, Hx of Aspiration Other: concern for fear of choking on small ice chip w/ water - Current Diet Liquids Current Liquids: [place] Thick Champion free water Protocol: Yes - NPO NPO - Alternative Nutrition Method: Gastrostomy Tube - Comments Current weight -: 122.6lbs, Patient verbalized she prefers to be around 125lbs and plans to increase PEG tube supplements. She currently consumes 1 cup of nectar thickened coffee, 6-8 cups of water. By PEG, she utilizes 3-4 cartons daily. She has also had liquidized soup that she makes ~mildly thick. [employer] recommended use of flow test to ensure soup is mildly/nectar thick and provided handout. Objective Dysphagia - Administered by Administered by: Self - Thin Liquids Administred via: Cup Oral Transit: Delay > 1 seconds Bolus clearance: significant clearance/minimal residue Cough: immediate Pharyngeal phase: elevation incomplete Comments: [employer] cued pt for cough and re-swallow; Pt consumed 3 trials - pt utilized cough and re-swallow each trial, multiple swallows. She verbalized one trial was a reflexive cough that she felt she needed to complete. Minimal oral residue. - Mildly Thick ([place]) Liquids Administered via: Cup Oral Transit: Delay > 1 seconds Bolus clearance: some clearance/residue Comments: multiple swallows, mild oral residue after the swallow, which was difficult to clear, no overt s/s of aspiration - Swallowing Impairment Contributing Factors to Swallowing Impairment: Reduced Oral Strength/Coordination/Sensation, Impaired Oral-Pharyngeal Transport, Delayed Swallow Initiation, Reduced Laryngeal Excursion - Impact Impact on Safety & Functioning: Risk for Aspiration, Risk for Inadequate Nutrition/Hydration - Recommendations Swallowing Treatment: Yes - Diet Texture Recommendations Liquids: Mildly thick (Level 2, [place]) NPO: Alternative Nutrition/Hydration Recommended Other: Champion Free Water Protocol; monitor weight and continue use of PEG tube to meet nutrition and hydration needs - Safety Other: Head tilt for A-P transport of nectar thick liquids. After consumption of nectar thick liquids with recommend oral care via swish and spit with mouthwash, wait 30 min to consume thin water. Compensatory Strategies: Small Sips - with FFWP, recommend intermittent cough and re-swallow, Slow Rate, Multiple Swallows, Sitting upright - Results Swallowing Within Normal Limits: No Swallowing Diagnosis: Oropharyngeal Phase Dysphagia (R13.12) Severity: Severe Subjective Oral Motor - Subjective Patient Reports: Difficulty being Understood - Comments Comments: Xerostomia, trouble keeping mouth closed at night, little difficulty being understood, pt avoids certain sounds/words in conversation (e.g. initial L ), numbness towards back R side of jaw. Objective Oral Motor - Oral Status Dentition: Missing Teeth Additional: missing most of molars - Labial Impairment: WNL Closure: Drooling Pucker: WNL Retraction: WNL Alternating Pucker/Retraction: WNL - Labial Comments Comments: Drooling attributed to poor A-P transport of saliva rather than labial weakness - Lingual Impairment: Severe Protrusion: Severe Retraction: Moderate Lateralization: Severe - Lingual Comments Comments: elevation - moderate; pt moves jaw L and R to compensate for decreased lateralization - Jaw Impairment: WNL Opening: Mild Closing: WNL Opening Measurement: 29mm - Jaw Comments Comments: trouble closing jaw at night - pt able to close jaw WNL during evaluation - Respiratory Status Respiratory Status: Room Air Modified Barium Results Hx MBS Report Entered: Yes MBS Results (from prior exam): 01/30/22 11:07 Speech Therapy by China Kahn [facility] Speech Pathology [facility] [place] [address] Modified Barium Swallow Study MR#: [id number] Acct: [id number] Name: ALEXYS CHATMAN Rep #:[id number] : 1955 66 From: China Scott, [facility] Modified Barium Swallow - Patient Information Study Date: 01/19/22 Study Time: 13:00 Direct Billable Minutes: 105 Total Minutes procedure & reportin Diagnosis: Tongue Cancer (C02.9) Referring Physician: Ryan Hennessy Reason for Referral: Objectively assess swallow function, risk for aspiration, and determine recommendations for least restrictive diet textures and compensatory strategies to improve safety of swallow. 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 From 03/24/2020 - 05/06/2020: received radiation treatment. Pt reports i in 2-4 speech therapy treatments w/ Yesy MICHAELS at [facility] numerous months ago. She had a FEES at that time. She has participated in 21 speech therapy sessions at [facility] and 3 MBSS. Most recent MBS study 06/19/2021 revealed aspiration of thin liquids. Study recommended [place]-thick Liquids with use of strategies to de crease risk for aspiration. FFWP also recommended from the study. She had to discontinue speech therapy in August 2021 due to a change in insurance and no longer having coverage for ST at [facility]. Recently, she switched to an insurance that will cover ST at [facility]. She was recommended for updated MBSS prior to return to therapy to monitor swallow function. She is at risk for worsening dysphagia s/p radiation. Pt reports increasing oral intake at home since August. She now consumes 1 cup of nectar thickened coffee, 6-8 cups of water. By PEG, she utilizes 3-4 cartons daily. She reports completing 80 effortful swallows per day, tongue ROM exercises, and jaw stretches. She wishes to return to ST for both dysphagia and speech therapy. Current Diet Ordered: [place] thick liquids - FFWP Mental Status: WNL Respiratory Status: Oxygenating on Room Air - Penetration-Aspiration Scale Penetration-Aspiration Scale: OBJECTIVE ASSESSMENT OF SWALLOW FUNCTION (QUANTITATIVE ? PER TRIAL): PENETRATION / ASPIRATION SCALE (BULL): 1 = does not enter airway 2 = enters airway/above vocal folds/ejected 3 = enters airway/above vocal folds/not ejected 4 = enters airway/contacts vocal folds/ejected 5 = enters airway/contacts vocal folds/not ejected 6 = enters airway/below vocal folds/ejected 7 = enters airway/below vocal folds/not ejected despite effort 8 = enters airway/below vocal folds/no effort VIDEOFLOROSCOPIC SCALE SCORE (BULL): Grade I = aspiration of material that has penetrated into the laryngeal vestibule, intact cough reflex Grade II = aspiration < 10 % of the bolus, intact cough reflex Grade III = aspiration of < 10 % of the bolus, reduced cough reflex or aspiration of > 10 % of the bolus, intact cough reflex Grade IV = aspiration of > 10 % of the bolus, reduced cough reflex - Penetration-Aspiration Scale Score Thin Liquid via teaspoon Result: 3= enters airways/above vocal folds/not ejected Thin Liquid via teaspoon Trial 2 Result: 3= enters airways/above vocal folds/not ejected Thin Liquid via small single sip from cup Result: 5= enters airways/contacts vocal folds/not ejected Thin Liquid via small single sip from cup Effortful swallow Result: 3= enters airways/above vocal folds/not ejected Thin Liquid via small single sip from cup cough and re-swallow Result: 5= enters airways/contacts vocal folds/not ejected - cleared contrast from the vocal folds, only trace residue remaining in LV after cough [place] Thick Liquid via small single sip from cup Result: 2= enter airway/above vocal folds/ejected Comment: Pt utilized water swish and spit to clear oral cavity after the trial - no aspiration of nectar thick contrast observed. Honey Thick Liquid via small single sip from cup Result: 3= enters airways/above vocal folds/not ejected - poor oral clearance requiring swish and spit with water Thin Liquid via small single sip from cup cough and re-swallow Trial 2 Result: 4= enters airway/contacts vocal folds/ejected - Oral Phase Labial Seal: Escape progressing to mid-chin Tongue Control During Bolus Hold: Posterior escape of greater than half of bolus Bolus Transport/Lingual Motion: Minimal to no tongue motion - minimal tongue motion - head tilt assists A-P transport throughout the study Oral Residue: Residue collection on oral structures - Pharyngeal Phase Initiation of Pharyngeal Swallow: Bolus head in pyriforms Soft Palate Elevation: No bolus between soft palate and pharyngeal wall Laryngeal Elevation: Partial superior movement thyroid cart/partial apprx aryt- epig petiole Anterior Hyoid Excursion: Partial anterior movement - little to no anterior movment Epiglottic Movement: No inversion Laryngeal Vestibule Closure at Height of Swallow: Incomplete; narrow column of air/contrast in laryngeal vestibule Pharyngeal Stripping Wave: Present - diminished Pharyngoesophageal Segment Opening: Parital distension and partial duration; parital obstruction of flow Tongue Base Retraction: Narrow column of contrast between tongue base & post. pharyngeal wall Pharyngeal Residue: Collection of residue within or on pharyngeal structures - Treatment Strategies Effects of treatment strategies attemped:: Effortful swallow = somewhat effective. Cough and re-swallow = somewhat effective. Multiple swallows = effective. Head tilt backwards to assist A-P transport = effective. - Diagnosis/Impression Diagnosis: Moderate-severe oropharyngeal phase dysphagia (R13.12) Impression: The oral phase is marked by.... -Severely restricted tongue ROM s/p partial glossectomy. Head tilt backward is used to assist A-P transport of liquids. -Poor bolus control with premature posterior loss of >1/2 of various trials to the laryngeal vestibule and pyriforms prior to swallow onset. -Mild-moderate oral residues after the swallow, which increase as viscosity increases. Use of swish and spit helps to clear oral cavity of residues. -Did not test mastication or viscosities thicker than honey thick due to poor capabilities for A-P transport. The pharyngeal phase is marked by... -Mildly decreased tongue base retraction, mild-moderate deficits in pharyngeal stripping wave, mild-moderate deficits in UES opening/duration, the patient presented with mild-moderate pharyngeal residues, which mostly cleared with independent use of multiple swallows. -Little to no anterior hyoid excursion, no epiglottic inversion, and mild- moderately decreased laryngeal elevation resulting in decreased airway closure during the swallow. -No aspiration observed during the study. Thin liquids via cup demonstrated laryngeal penetration to the vocal folds, which did not fully eject; however, with use of cough and re-swallow only trace residue remained in the laryngeal vestibule after the swallow and no residue was present on vocal folds. Pt demonstrated reflexive throat clear to penetration of thin liquids to the vocal folds in 2/3 trials (other trial pt was cued for cough and re-swallow strategy). Effortful swallow appeared to decrease depth of laryngeal penetration. - Recommendations Diet: [place]-thick Liquids - Champion Free Water Protocol (FFWP) Comment: Head tilt for A-P transport of nectar thick liquids. After consumption of nectar thick liquids with recommend oral care via swish and spit with mouthwash, wait 30 min to consume thin water. Compensatory Strategies: Small Sips - with FFWP, recommend intermittent cough and re-swallow, Slow Rate, Multiple Swallows, Sitting upright Recommend Repeat Modified Barium Swallow: Yes - Repeat MBSS in 6 month to monitor risk for worsening dysphagia and aspiration risk s/p radiation. Need for Skilled Speech Therapy Services: Yes Comment: Will recommend the patient for outpatient dysphagia therapy to address deficits in oropharyngeal swallow function, as well as dysarthria, secondary to tongue cancer with partial glossectomy. Will recommend the patient for oropharyngeal strengthening to improve lingual ROM, laryngeal elevation, hyoid excursion, pharyngeal contraction, and duration of UES opening (CTAR, Nora, effortful swallow, lingual ROM exercises). The patient would benefit from thorough education regarding diet recommendations and recommended compensatory strategies. Will recommend trials of thin liquids with [employer] with use of multiple, effortful swallows and cough and re-swallow. The patient requires further educat ion re: FFWP with emphasis on importance of oral care following consumption of nectar thickened consistencies. Education Completed: 1. Described result of evaluation., 2. Pt understands evaluation & agrees with goals and treatment plan., 4. Family/caregivers understand evaluation & agree w/ goals & tx plan., 7. Pt requires further education on strategies & risks. - Status Active ST Patient: Active - Contact Information [facility] Speech Therapy:: China Kahn M.A. [facility] Speech-Language Pathologist [facility] [address] [place] [email or web address] [phone] 01/19/22 14:18 01/19/22 1446 <Electronically signed by China Kahn M.A., [employer]> Date/Time China Kahn M.A., [employer] Co-Signature Required for all Medicare patients Date/Time Co-Signature Electronically signed by China Kahn M.A., [facility] on 01/30/22 11:07 Initialized on 01/30/22 11:07 - END OF NOTE Subjective Dysarthria/Motor - Subjective Subjective: The patient reports difficulty with certain sounds, especially L . She feels she has to repeat herself at times in conversation, but she typically does not have difficulty expressing her wants/needs. She feels she substitutes words to avoid difficult words/sounds. The patient at times feels out of breath when speaking, but has no concerns for volume. She feels that in conversation the sharpness of certain sounds is not as good as it could be, and she wishes to improve articulation at the conversational level. Objective Dysarthira/Motor - Speech Intelligibility Phonemes: Mild Single Words: Mild Conversation: Mild - Volume Volume: WNL - Sounds Sounds in Error: Due to time constraints, [employer] only able to assess bilabials, alveolars, velars, and sibilants at word level. Pt substituted initial /t/ for /k/ 1X. - Comments Diadochokinetic Rates -: Informal speech production assessment 01/30/2022 - /p^/ - 6.5 syllables per second (WNL = at least 6.4 syllables per second), /t^/ - 1.9 syllables per second (WNL = at least 6.1 syllables per second), /k^/ - 2.1 syllables per second (WNL = at least 5.7 syllables per second). /p^t^k^/ - 2.7 syllables per second. Will plan for further assessment of speech production in the word, sentence, and conversational levels in upcoming sessions to set additional goals to POC to promote improved speech clarity in conversation. Currently, the patient presents with mild-moderate dysarthria and presents with ~90% speech intelligibility in conversation. The patient expresses interest in improving certain sounds in conversation to reduce the need for repetition in complex conversations with others. Swallowing Performance Scale - Swallowing Performance Scale Swallowing Performance Scale Result: 6 Moderate to Severe HDQLIFE - Speech Difficulties - In the past 7 days. It was difficult for other people to understand me.: Rarely Is was difficult to speak clearly?: Rarely - In the past 7 days.. How often did you limit your social activites because you had difficulty speaking?: Never - In the past 7 days... I had trouble speaking.: Not at all I was frustrated by my speech difficulties.: A little bit - How much DIFFICULTY do you have... ...saying what you want to say?: A little difficulty - Score HDQLIFE Speech Difficulties Raw Score: 10 HDQLIFE Speech Difficulties T - Score: 50 FOIS - Functional Oral Intake Scale Tube dependent with consistent oral intake of food or liquid: Level 3 Plan - Plan Plan: Will recommend the patient for skilled outpatient dysphagia therapy to address mild-moderate dysarthria and moderate-severe oropharyngeal dysphagia related to tongue cancer s/p partial glossectomy w/ flap based reconstruction. Will complete a repeat Modified Barium Swallow Study in July 2022 to reassess swallow function, aspiration risk, and determine appropriateness for diet advancement. This patient requires skilled dysphagia intervention to implement updated oropharyngeal exercise program, train in use of strategies to decrease risk for aspiration, and trial to advance diet textures. She also requires skilled speech therapy services to address mild-moderate dysarthria, implement oral motor ROM exercises, and train in strategies for articulatory placement and to improve speech clarity. - Recommendations MBS: Yes Treatment Warranted: Yes Treatment Warranted: Speech Sound Production, Dysphagia Comment: Repeat MBSS in 6 months to monitor risk for worsening dysphagia s/p radiation treatment for tongue cancer. - Progress Prognosis: Good - Frequency Frequency: Every Other Week Additional (Frequency): Frequency may change during POC based on patient's needs. Duration: 12 Months - Patient/Family Goal Patient/Family Goal: Improve speech clarity in conversation, continue to improve swallow function and advance diet textures as able - Goals that are Established Determination:: Goals will be added/modified as deemed necessary and appropriate. Therapy will be discontinued when results of re-evaluation indicate therapy is no longer needed or lack of progress has been documented. - Goal #1-5 Goal #1: The patient will consume least restrictive diet textures without overt s/s of aspiration with minimal verbal cues for use of compensatory strategies to decrease risk for aspiration. Current diet: [place] thick liquids with FFWP and use of PEG tube to meet nutritional and hydration needs. Pt is ok for trials of thin liquids with use of multiple swallows, cough and re-swallow with [employer]. Goal #2: The patient will complete an oropharyngeal exercise program during and post radiation treatment independently to improve and maintain strength, ROM, and coordination of swallowing mechanism (lingual ROM, jaw stretch, CTAR, Nora, effortful) (X10 repetitions, 3-5X daily). Goal #3: The patient will participate in MBS study to objectively assess swallow function and provide recommendations for safest, least restrictive diet and compensatory strategies to reduce risk for aspiration. Goal #4: The patient will demonstrate use or verbalize awareness of compensatory strategies to improve speech clarity in conversation with minimal verbal cues. Goal #5: The patient will participate in further dysarthria assessment in upcoming sessions to set additional goals as needed to POC. Education - Patient has Indicated that the Following Identified Educational Needs: None The Patient has indicated that they have no educational or learning abilities that may effect their care.: Yes - Patient Instruction Patient Education: Diagnosis, Treatment Plan, Goals, Safety Precautions, Diet Level, Home Exercise Program Person Taught: Patient, Family Teaching Method: Discussion, Demonstration Response to teaching: Return demonstration, Verbalize understanding, Reinforc ement needed
--- NOTE | 2022-05-18 14:59 | HP.SP.REEV ---
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 From 03/24/2020 - 05/06/2020 the patient received radiation treatment. Pt reports participating in 2-4 speech therapy treatments w/ [facility] [employer], Yesy, at [facility] just after surgery and during radiation. She had a FEES at that time. She has participated in 21 speech therapy sessions at [facility] and 4 MBSS. She had advanced her diet from NPO with FFWP (PEG for primary means of nutrition and hydration) to [place] thick liquids with FFWP and use of PEG for maintaining appropriate nutrition and hydration. She had to discontinue speech therapy in August 2021 due to a change in insurance and no longer having coverage for ST at [facility]. Recently, she switched to an insurance that will cover ST at [facility]. She was recommended for updated MBSS prior to return to therapy to monitor swallow function. She is at risk for worsening dysphagia s/p radiation. Pt reports increasing oral intake at home since August. She now consumes 1 cup of nectar thickened coffee, 6-8 cups of water. By PEG, she utilizes 3-4 cartons daily. She reports completing 80 effortful swallows per day, tongue ROM exercises, and jaw stretches. She wishes to return to [facility] for both dysphagia and speech therapy. Most recent MBSS from 01/19/2022 attached in note. It recommended continuing [place]ob-thick Liquids - Champion Free Water Protocol (FFWP); Head tilt for A-P transport of nectar thick liquids. After consumption of nectar thick liquids with recommend oral care via swish and spit with mouthwash, wait 30 min to consume thin water. Continue to utilize PEG tube to provide self adequate nutrition and hydration. Compensatory Strategies: Small Sips - with FFWP, recommend intermittent cough and re-swallow, Slow Rate, Multiple Swallows, Sitting upright; Recommend Repeat Modified Barium Swallow: Yes - Repeat MBSS in 6 month to monitor risk for worsening dysphagia and aspiration risk s/p radiation. Will recommend the patient for return to outpatient dysphagia therapy to address deficits in oropharyngeal swallow function, as well as dysarthria, secondary to tongue cancer with partial glossectomy. Smoking Status: Former smoker - Diagnosis Diagnosis: Tongue Cancer C02.9,Malignant neoplasm of overlapping sites of tongue C02.8 - Pain Is pain an issue with your current prescribed condition?: No - Personal Preferred language: Kazakh History - History Date of Eval: 01/30/22 Smoking Status: Former smoker Hx Smoking Cessation Date: 02/08/20 Hx Tobacco Use: Yes - Pain Is pain an issue with your current prescribed condition?: No Patient Allergies - Allergies Allergies No Known Allergies Allergy (Verified 04/03/21 14:26) Previous/Current Goals - Goals 1-5 Previous Goal #1: The patient will consume least restrictive diet textures without overt s/s of aspiration with minimal verbal cues for use of compensatory strategies to decrease risk for aspiration. Current diet: Thin liquids (multiple swallows, cough and re-swallow) with FFWP and use of PEG tube to meet nutritional and hydration needs. Goal 1 Status: Progressing- Thin Liquids w/multiple swallows, cough and re-swallow. PEG tube for majority of nutrition. Previous Goal #2: The patient will complete an oropharyngeal exercise program during and post radiation treatment independently to improve and maintain strength, ROM, and coordination of swallowing mechanism (lingual ROM, jaw stretch, CTAR, Nora, effortful) (X10 repetitions, 3-5X daily). Goal 2 Status: Progressing- routinely completes recommended lingual, ROM, jaw and effortful swallows. Pt completes Nora and CTAR X10 in sessions, with poor carryover at home. Previous Goal #3: The patient will participate in MBS study to objectively assess swallow function and provide recommendations for safest, least restrictive diet and compensatory strategies to reduce risk for aspiration. Goal 3 Status: Progressing- repeat study planned for 07/2022. Previous Goal #4: The patient will demonstrate use or verbalize awareness of compensatory strategies to improve speech clarity in conversation with minimal verbal cues. Goal 4 Status: Progressing- patient aware of recommended strategies and reports independent use of strategies while conversing with communication partners. Previous Goal #5: LTG: The patient will increase speech intelligibility over the phone with familiar and unfamiliar listeners with 80% accuracy when given minimal cues. Goal 5 Status: Goal Met- 96-98% intelligibility w/readings over phone. - Goals 6-10 Previous Goal #6: STG: The patient will produce the alveolar /t/ phoneme in all positions at the sentence level with 90% accuracy when given minimal cues to increase speech intelligibility. Goal 6 Status: Goal Met- 95% accuracy. Previous Goal #7: STG: The patient will produce initial /l/ phoneme (e.g., leg, like, lemon) at the sentence level with 90% accuracy when given minimal cues to increase speech intelligibility. Goal 7 Status: Goal Met- 100% accuracy. Previous Goal #8: STG: The patient will produce /l/ blends (e.g., clock, cornflake, glue) at the sentence level with 90% accuracy when given minimal cues to increase speech intelligibility. Goal 8 Status: Goal Met- 94-100% accuracy. Previous Goal #9: STG: The patient will produce /st/ blends (e.g., stop, lost, lipstick) at the sentence level with 90% accuracy when given minimal cues to increase speech intelligibility. Goal 9 Status: Progressing- 60-70% accuracy. Subjective Dysphagia - Symptoms Reported Symptoms/Problems with: Drooling, Coughing, Difficulty Swallowing Solids, Xerostomia, Hx of Aspiration Other: concern for fear of choking on small ice chip w/ water - Current Diet Liquids Current Liquids: Thin Champion free water Protocol: Yes - NPO NPO - Alternative Nutrition Method: Gastrostomy Tube - Comments Current weight -: 127 lbs Objective Dysphagia - Administered by Administered by: Self - Thin Liquids Administred via: Cup Oral Transit: Delay > 1 seconds Bolus clearance: significant clearance/minimal residue Cough: none observed/unable to assess Pharyngeal phase: laryngeal elevation mildly restricted slow initiation Comments: independent use of volitional cough and re-swallow, no additional coughing or s/s of aspiration - Swallowing Impairment Contributing Factors to Swallowing Impairment: Reduced Oral Strength/Coordination/Sensation, Impaired Oral-Pharyngeal Transport, Delayed Swallow Initiation, Reduced Laryngeal Excursion - Impact Impact on Safety & Functioning: Risk for Aspiration, Risk for Inadequate Nutrition/Hydration - Recommendations Modified Barium Swallow/Cookie Swallow Recommended: Yes Swallowing Treatment: Yes - Diet Texture Recommendations Liquids: Thin (Level 0) NPO: Alternative Nutrition/Hydration Recommended Other: Continue receiving majority of nutrition via PEG. - Safety Saftey Precautions/Swallowing Recommendations (Check all that Apply): Multiple Swallows Other: Small sips, cough and re-swallow with sips - Results Swallowing Within Normal Limits: No Swallowing Diagnosis: Oropharyngeal Phase Dysphagia (R13.12) Additional: moderate-severe oropharyngeal dysphagia Severity: Severe Subjective Oral Motor - Subjective Patient Reports: Drooling, Difficulty being Understood - Comments Comments: Xerostomia, little difficulty being understood with subconscious use/ independent use of strategies to improve intelligibility, and numbness towards back R side of jaw. Objective Oral Motor - Oral Status Dentition: Missing Teeth Additional: missing most of molars - Labial Impairment: WNL Observation at Rest: WNL Closure: Drooling Pucker: WNL Retraction: WNL Alternating Pucker/Retraction: WNL Involuntary Movement noted: Yes - Labial Comments Comments: Drooling attributed to poor A-P transport of saliva rather than labial weakness, and slight labial tremor. - Lingual Impairment: Severe Protrusion: Severe Retraction: Severe Lateralization: Severe Involuntary Movement: No - Lingual Comments Comments: elevation - moderate; pt moves jaw L and R to compensate for decreased lateralization - Jaw Impairment: WNL Opening: Mild Closing: WNL Opening Measurement: 36mm Involuntary Movement: No - Jaw Comments Comments: Patient reported numbness in the back R-side of lower jaw. - Respiratory Status Respiratory Status: Room Air Modified Barium Results Hx MBS Report Entered: Yes MBS Results (from prior exam): 01/30/22 11:07 Speech Therapy by China Kahn [facility] Speech Pathology [address] [place] [address] Modified Barium Swallow Study MR#: [id number] Acct: [id number] Name: ALEXYS CHATMAN Rep #: [id number] : 1955 66 From: China Kahn M.A., [facility] Modified Barium Swallow - Patient Information Study Date: 01/19/22 Study Time: 13:00 Direct Billable Minutes: 105 Total Minutes procedure & reportin Diagnosis: Tongue Cancer (C02.9) Referring Physician: Ryan Hennessy Reason for Referral: Objectively assess swallow function, risk for aspiration, and determine recommendations for least restrictive diet textures and compensatory strategies to improve safety of swallow. 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 From 03/24/2020 - 05/06/2020: received radiation treatment. Pt reports i in 2-4 speech therapy treatments w/ [facility] at [facility] numerous months ago. She had a FEES at that time. She has participated in 21 speech therapy sessions at [facility] and 3 MBSS. Most recent MBS study 06/19/2021 revealed aspiration of thin liquids. Study recommended [place]-thick Liquids with use of strategies to decrease risk for aspiration. FFWP also recommended from the study. She had to discontinue speech therapy in August 2021 due to a change in insurance and no longer having coverage for ST at [facility]. Recently, she switched to an insurance that will cover ST at [facility]. She was recommended for updated MBSS prior to return to therapy to monitor swallow function. She is at risk for worsening dysphagia s/p radiation. Pt reports increasing oral intake at home since August. She now consumes 1 cup of nectar thickened coffee, 6-8 cups of water. By PEG, she utilizes 3-4 cartons daily. She reports completing 80 effortful swallows per day, tongue ROM exercises, and jaw stretches. She [facility] both dysphagia and speech therapy. Current Diet Ordered: [place] thick liquids - FFWP Mental Status: WNL Respiratory Status: Oxygenating on Room Air - Penetration-Aspiration Scale Penetration-Aspiration Scale: OBJECTIVE ASSESSMENT OF SWALLOW FUNCTION (QUANTITATIVE ? PER TRIAL): PENETRATION / ASPIRATION SCALE (BULL): 1 = does not enter airway 2 = enters airway/above vocal folds/ejected 3 = enters airway/above vocal folds/not ejected 4 = enters airway/contacts vocal folds/ejected 5 = enters airway/contacts vocal folds/not ejected 6 = enters airway/below vocal folds/ejected 7 = enters airway/below vocal folds/not ejected despite effort 8 = enters airway/below vocal folds/no effort VIDEOFLOROSCOPIC SCALE SCORE (BULL): Grade I = aspiration of material that has penetrated into the laryngeal vestibule, intact cough reflex Grade II = aspiration < 10 % of the bolus, intact cough reflex Grade III = aspiration of < 10 % of the bolus, reduced cough reflex or aspiration of > 10 % of the bolus, intact cough reflex Grade IV = aspiration of > 10 % of the bolus, reduced cough reflex - Penetration-Aspiration Scale Score Thin Liquid via teaspoon Result: 3= enters airways/above vocal folds/not ejected Thin Liquid via teaspoon Trial 2 Result: 3= enters airways/above vocal folds/not ejected Thin Liquid via small single sip from cup Result: 5= enters airways/contacts vocal folds/not ejected Thin Liquid via small single sip from cup Effortful swallow Result: 3= enters airways/above vocal folds/not ejected Thin Liquid via small single sip from cup cough and re-swallow Result: 5= enters airways/contacts vocal folds/not ejected - cleared contrast from the vocal folds, only trace residue remaining in LV after cough [place] Thick Liquid via small single sip from cup Result: 2= enter airway/above vocal folds/ejected Comment: Pt utilized water swish and spit to clear oral cavity after the trial - no aspiration of nectar thick contrast observed. Honey Thick Liquid via small single sip from cup Result: 3= enters airways/above vocal folds/not ejected - poor oral clearance requiring swish and spit with water Thin Liquid via small single sip from cup cough and re-swallow Trial 2 Result: 4= enters airway/contacts vocal folds/ejected - Oral Phase Labial Seal: Escape progressing to mid-chin Tongue Control During Bolus Hold: Posterior escape of greater than half of bolus Bolus Transport/Lingual Motion: Minimal to no tongue motion - minimal tongue motion - head tilt assists A-P transport throughout the study Oral Residue: Residue collection on oral structures - Pharyngeal Phase Initiation of Pharyngeal Swallow: Bolus head in pyriforms Soft Palate Elevation: No bolus between soft palate and pharyngeal wall Laryngeal Elevation: Partial superior movement thyroid cart/partial apprx aryt-epig petiole Anterior Hyoid Excursion: Partial anterior movement - little to no anterior movment Epiglottic Movement: No inversion Laryngeal Vestibule Closure at Height of Swallow: Incomplete; narrow column of air/contrast in laryngeal vestibule Pharyngeal Stripping Wave: Present - diminished Pharyngoesophageal Segment Opening: Parital distension and partial duration; parital obstruction of flow Tongue Base Retraction: Narrow column of contrast between tongue base & post. pharyngeal wall Pharyngeal Residue: Collection of residue within or on pharyngeal structures - Treatment Strategies Effects of treatment strategies attemped:: Effortful swallow = somewhat effective. Cough and re-swallow = somewhat effective. Multiple swallows = effective. Head tilt backwards to assist A-P transport = effective. - Diagnosis/Impression Diagnosis: Moderate-severe oropharyngeal phase dysphagia (R13.12) Impression: The oral phase is marked by.... -Severely restricted tongue ROM s/p partial glossectomy. Head tilt backward is used to assist A-P transport of liquids. -Poor bolus control with premature posterior loss of >1/2 of various trials to the laryngeal vestibule and pyriforms prior to swallow onset. -Mild-moderate oral residues after the swallow, which increase as viscosity increases. Use of swish and spit helps to clear oral cavity of residues. -Did not test mastication or viscosities thicker than honey thick due to poor capabilities for A-P transport. The pharyngeal phase is marked by... -Mildly decreased tongue base retraction, mild-moderate deficits in pharyngeal stripping wave, mild-moderate deficits in UES opening/duration, the patient presented with mild-moderate pharyngeal residues, which mostly cleared with independent use of multiple swallows. -Little to no anterior hyoid excursion, no epiglottic inversion, and mild-moderately decreased laryngeal elevation resulting in decreased airway closure during the swallow. -No aspiration observed during the study. Thin liquids via cup demonstrated laryngeal penetration to the vocal folds, which did not fully eject; however, with use of cough and re-swallow only trace residue remained in the laryngeal vestibule after the swallow and no residue was present on vocal folds. Pt demonstrated reflexive throat clear to penetration of thin liquids to the vocal folds in 2/3 trials (other trial pt was cued for cough and re-swallow strategy). Effortful swallow appeared to decrease depth of laryngeal penetration. - Recommendations Diet: [place]-thick Liquids - Champion Free Water Protocol (FFWP) Comment: Head tilt for A-P transport of nectar thick liquids. After consumption of nectar thick liquids with recommend oral care via swish and spit with mouthwash, wait 30 min to consume thin water. Compensatory Strategies: Small Sips - with FFWP, recommend intermittent cough and re-swallow, Slow Rate, Multiple Swallows, Sitting upright Recommend Repeat Modified Barium Swallow: Yes - Repeat MBSS in 6 month to monitor risk for worsening dysphagia and aspiration risk s/p radiation. Need for Skilled Speech Therapy Services: Yes Comment: Will recommend the patient for outpatient dysphagia therapy to address deficits in oropharyngeal swallow function, as well as dysarthria, secondary to tongue cancer with partial glossectomy. Will recommend the patient for oropharyngeal strengthening to improve lingual ROM, laryngeal elevation, hyoid excursion, pharyngeal contraction, and duration of UES opening (CTAR, Nora, effortful swallow, lingual ROM exercises). The patient would benefit from thorough education regarding diet recommendations and recommended compensatory strategies. Will recommend trials of thin liquids with [employer] with use of multiple, effortful swallows and cough and re-swallow. The patient requires further education re: FFWP with emphasis on importance of oral care following consumption of nectar thickened consistencies. Education Completed: 1. Described result of evaluation., 2. Pt understands evaluation & agrees with goals and treatment plan., 4. Family/caregivers understand evaluation & agree w/ goals & tx plan., 7. Pt requires further education on strategies & risks. - Status Active ST Patient: Active - Contact Information [facility] Speech Therapy:: China Kahn M.A. [facility] Speech-Language Pathologist [facility] [address] [place] [address] [email or web address] [phone] 01/19/22 14:18 01/19/22 [id number] <Electronically signed by China Kahn M.A., [facility]> Date/Time China M Kahn M.A., [facility] Co-Signature Required for all Medicare patients Date/Time Co-Signature Initialized on 01/30/22 11:07 - END OF NOTE Subjective Dysarthria/Motor - Subjective Subjective: Patient reports she has difficulty with /st/ blends, and reports feelings of frustration when she has to slow down or repeat herself during conversation. Objective Dysarthira/Motor - Speech Intelligibility Phonemes: Mild Single Words: Mild Phrases: Mild Sentences: Mild Conversation: Mild - Volume Volume: WNL - Sounds Sounds in Error: Patient produces sh for /st/ blends. - Observation Observation of Apraxia of Speech: No Oral Groping for Placement: No Inconsistent Errors: No - Awareness/Strategy Use Uses strategies intermittently to improve intelligibility or listener's understanding of message: Yes - Comments Informal Sentence Level Dysarthria Assessment -: Pt verbally repeated sentences with words with the following consonant sounds in the initial, medial, and final positions: Bilabials ? 07/24 acc. Alveolars? 10/27 acc. Velars ? 09/25 acc. Sibilants ? 01/29 acc. Affricates ? 07/24 acc. Glides ? 10/27 acc. /s/ Blends ? 12/29 acc. /l/ Blends ? 08/25 acc (errors = omission of /l/ 1X). The patient presents with mild dysarthria characterized by difficulty with articulation of various consonant blends. Will recommend continued dysarthria treatment weekly to train in phonetic placement of /st/ blends and practice placement in the sentence/word/conversational levels with goal of improving speech intelligibility in complex conversation to promote improved ability to express medical and social wants and needs. Swallowing Performance Scale - Swallowing Performance Scale Swallowing Performance Scale Result: 6 Moderate to Severe FOIS - Functional Oral Intake Scale Tube dependent with consistent oral intake of food or liquid: Level 3 Plan - Plan Plan: Will recommend the patient for skilled outpatient speech therapy to address mild dysarthria and moderate-severe oropharyngeal dysphagia related to tongue cancer s/p partial glossectomy w/ flap based reconstruction. Will complete a repeat Modified Barium Swallow Study in July 2022 to reassess swallow function, aspiration risk, and determine appropriateness for diet advancement. This patient requires skilled dysphagia intervention to implement updated oropharyngeal exercise program, train in use of strategies to decrease risk for aspiration, and trial to advance diet textures. She also requires skilled speech therapy services to address mild dysarthria, implement oral motor ROM exercises, and train in strategies for articulatory placement and to improve speech clarity. - Recommendations MBS: Yes Treatment Warranted: Yes Treatment Warranted: Speech Sound Production, Dysphagia Comment: Repeat MBSS in July to monitor risk for worsening dysphagia s/p radiation treatment for tongue cancer. - Progress Prognosis: Good - Frequency Frequency: 1x/Week Additional (Frequency): Frequency due to change during POC based on patient's needs. Duration: 12 Months - Patient/Family Goal Patient/Family Goal: Improve speech clarity in conversation. Advance diet as able. - Goals that are Established Determination:: Goals will be added/modified as deemed necessary and appropriate. Therapy will be discontinued when results of re-evaluation indicate therapy is no longer needed or lack of progress has been documented. - Goal #1-5 Goal #1: LTG: The patient will consume least restrictive diet textures without overt s/s of aspiration with minimal verbal cues for use of compensatory strategies to decrease risk for aspiration. Current diet: Thin liquids (multiple swallows, cough and re-swallow) with FFWP and use of PEG tube to meet nutritional and hydration needs. Goal #2: The patient will complete an oropharyngeal exercise program during and post radiation treatment independently to improve and maintain strength, ROM, and coordination of swallowing mechanism (lingual ROM, jaw stretch, CTAR, Nora, effortful) (X10 repetitions, 3-5X daily). Goal #3: The patient will participate in MBS study to objectively assess swallow function and provide recommendations for safest, least restrictive diet and compensatory strategies to reduce risk for aspiration. Goal #4: The patient will demonstrate use or verbalize awareness of compensatory strategies to improve speech clarity in conversation with minimal verbal cues. Goal #5: LTG: The patient will increase speech intelligibility over the phone with familiar and unfamiliar listeners with 80% accuracy when given minimal cues. Education - Patient has Indicated that the Following Identified Educational Needs: None The Patient has indicated that they have no educational or learning abilities that may effect their care.: Yes - Patient Instruction Patient Education: Diagnosis, Treatment Plan, Goals, Safety Precautions, Diet Level, Home Exercise Program Person Taught: Patient, Family Teaching Method: Discussion, Demonstration Response to teaching: Return demonstration, Verbalize understanding, Reinforcement needed
--- NOTE | 2022-12-07 11:01 | ST ---
[facility] [place] Speech Pathology [address] [place] [address] Modified Barium Swallow Study MR#: [id number] Acct: [id number] Name: ALEXYS CHATMAN Rep #: [id number] : [id number] 66 From: Adriana Ba M.A., [facility]3]-LICENSED ESTHETICIAN Modified Barium Swallow Patient Information Study Date: 08/24/22 Study Time: 13:00 Direct Billable Minutes: 180 Total Minutes procedure & reportin Diagnosis: Tongue Cancer (C02.9) Referring Physician: Ryan Hennessy Reason for Referral: Objectively assess swallow function, risk for aspiration and determine recommendations for LRD and compensatory strategies to improve safety of the swallow. 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 From 03/24/2020 - 05/06/2020: received radiation treatment. Pt reports 2-4 speech therapy treatments w/ Yesy MICHAELS at [facility] numerous months ago. She had a FEES at that time. She has participated in 21 speech therapy sessions at [facility] and 3 MBSS. Most recent MBS study in January 2022 which recommended NTL w/ implementation of FFWP. See report for full details. She reports seeing [place] MICHAELS regularly, however d/t change in insurance has not seen [place] since May 2022. She was recommended for updated MBSS prior to return to therapy to monitor swallow function. She is at risk for worsening dysphagia s/p radiation. Patient reports that the only food she is having orally is nectar thick coffee and FFWP. Patient reported her goal would be to tolerate a puree soup such as a cream of chicken blended . By PEG, she utilizes 3-4 cartons daily. She reports completing oropharyngeal exercises re: effortful swallows per day, tongue ROM exercises, and jaw stretches. She has appointment w/ Trini Halenar next week for OP Speech Therapy Current Diet Ordered: PEG for primary nutrition/hydration w/ NTL, FFWP Mental Status: WNL Respiratory Status: Oxygenating on Room Air Penetration-Aspiration Scale Penetration-Aspiration Scale: OBJECTIVE ASSESSMENT OF SWALLOW FUNCTION (QUANTITATIVE ? PER TRIAL): PENETRATION / ASPIRATION SCALE (BULL): 1 = does not enter airway 2 = enters airway/above vocal folds/ejected 3 = enters airway/above vocal folds/not ejected 4 = enters airway/contacts vocal folds/ejected 5 = enters airway/contacts vocal folds/not ejected 6 = enters airway/below vocal folds/ejected 7 = enters airway/below vocal folds/not ejected despite effort 8 = enters airway/below vocal folds/no effort VIDEOFLOROSCOPIC SCALE SCORE (BULL): Grade I = aspiration of material that has penetrated into the laryngeal vestibule, intact cough reflex Grade II = aspiration < 10 % of the bolus, intact cough reflex Grade III = aspiration of < 10 % of the bolus, reduced cough reflex or aspiration of > 10 % of the bolus, intact cough reflex Grade IV = aspiration of > 10 % of the bolus, reduced cough reflex Penetration-Aspiration Scale Score Thin Liquid via teaspoon: Result: 5= enters airways/contacts vocal folds/not ejected Thin Liquid via teaspoon Trial 2: Result: 5= enters airways/contacts vocal folds/not ejected Thin Liquid via teaspoon Trial 3: Result: 5= enters airways/contacts vocal folds/not ejected Thin Liquid via single sip from cup: Result: 5= enters airways/contacts vocal folds/not ejected Thin Liquid via single sip from cup Trial 2: Result: 2= enter airway/above vocal folds/ejected [place] Thick Liquid via single sip from cup : Result: 1= does not enter airway Moist Puree: Result: 1= does not enter airway Thin Liquid via single sip from cup Trial 3: Result: 8= enters airway/below vocal folds/no effort Oral Phase Labial Seal: Escape progressing to mid-chin Tongue Control During Bolus Hold: Posterior escape of less than half of bolus Bolus Transport/Lingual Motion: Minimal to no tongue motion Oral Residue: Majority of bolus remaining Pharyngeal Phase Initiation of Pharyngeal Swallow: Bolus head in pyriforms Soft Palate Elevation: No bolus between soft palate and pharyngeal wall Laryngeal Elevation: Partial superior movement thyroid cart/partial apprx aryt-epig petiole Anterior Hyoid Excursion: Partial anterior movement Epiglottic Movement: No inversion Laryngeal Vestibule Closure at Height of Swallow: Incomplete; narrow column of air/contrast in laryngeal vestibule Pharyngeal Stripping Wave: Present - diminished Pharyngoesophageal Segment Opening: Parital distension and partial duration; parital obstruction of flow Tongue Base Retraction: Narrow column of contrast between tongue base & post. pharyngeal wall Pharyngeal Residue: Collection of residue within or on pharyngeal structures Treatment Strategies Effects of treatment strategies attemped:: cough and re- swallow = not effective Diagnosis/Impression Diagnosis: severe oropharyngeal dysphagia R13.12 Impression: Patient presents w/ severe oropharyngeal dysphagia. Oral phase primarily marked by.... - severely restricted tongue ROM s/p partial glossectomy. - poor bolus control w/ premature posterior loss of >1/2 of various trials to the laryngeal vestibule and pyriforms prior to swallow onset. - moderate oral residue post deglutition which did worsen w/ thicker viscosities. Patient required 5-8 swallows to clear 1 tsp of thin liquid and nectar thick liquid. Patient used a swish / spit technique to clear oral residues which did significantly improve. - attempted moist puree w/ no AP transit despite head tilt backwards. W/ liquid wash, patient was able to wash some of the puree down. Remaining moist puree was removed w/ swish / spit technique. Pharyngeal phase primarily marked by... -mildly decreased tongue base retraction, mild-moderate deficits in pharyngeal stripping wave, mild-moderate deficits in UES opening/duration, the patient presented with mild-moderate pharyngeal residues, which mostly cleared with independent use of multiple swallows. -little to no anterior hyoid excursion, no epiglottic inversion, and mild-moderately decreased laryngeal elevation resulting in decreased airway closure during the swallow. - penetration to the vocal folds that did not fully eject was observed w/ thin via tsp and thin via cup. Patient did present w/ reflexive throat clear w/ penetration. Cough and re-swallow was not effective. - silent aspiration observed w/ additional trial of thin via cup. Cough and re-swallow was not effective. Recommendations Diet: [place]-thick Liquids (w/ FFWP) Comment: Continue w/ prior MBSS recommendations to use head tilt for AP transport of NTL. Use swish / spit technique for oral residue remaining in the oral cavity post deglutition. Compensatory Strategies: Small Sips, Slow Rate, Multiple Swallows and Sitting upright Recommend Repeat Modified Barium Swallow: Yes Comment: Recommend repeat MBSS in 6 months to monitor risk for worsening dysphagia and aspiration risk s/p radiation. Need for Skilled Speech Therapy Services: Yes Comment: Will recommend the patient for outpatient dysphagia therapy to address deficits in oropharyngeal swallow function, as well as dysarthria, secondary to tongue cancer with partial glossectomy. Will recommend the patient for oropharyngeal strengthening to improve lingual ROM, laryngeal elevation, hyoid excursion, pharyngeal contraction, and duration of UES opening (CTAR, Nora, effortful swallow, lingual ROM exercises). The patient would benefit from thorough education regarding diet recommendations and recommended compensatory strategies. Will recommend trials of thin liquids with LICENSED ESTHETICIAN with use of multiple, effortful swallows and cough and re-swallow. The patient requires further education re: FFWP with emphasis on importance of oral care following consumption of nectar thickened consistencies. Patient reports having appointment w/ Trini Thao LICENSED ESTHETICIAN next week. Education Completed: 1. Described result of evaluation., 2. Pt understands evaluation & agrees with goals and treatment plan., 4. Family/caregivers understand evaluation & agree w/ goals & tx plan. and 7. Pt requires further education on strategies & risks. Status Active ST Patient: Active Contact Information [facility] Speech Therapy:: Adriana Ba M.A. CCC-LICENSED ESTHETICIAN Speech-Language Pathologist [facility] [address] [place] [address] [email or web address] [phone] 08/24/22 1601 <Electronically signed by Adriana Ba M.A., CCC-LICENSED ESTHETICIAN> Date/Time Adriana Ba M.A., CCC-LICENSED ESTHETICIAN
--- NOTE | 2022-12-07 14:59 | HP.SP.REEV ---
Documented by User: [email or web address] Varma 12/11/22 21:37 Reference: Neuro-QoL instrument HDQLIFE - Speech Difficulties Score HDQLIFE Speech Difficulties Raw Score: 10 HDQLIFE Speech Difficulties T - Score: 50 Radiation Oncology Patient Plan Goals that are Established Determination:: Goals will be added/modified as deemed necessary and appropriate. Therapy will be discontinued when results of re-evaluation indicate therapy is no longer needed or lack of progress has been documented. Education Patient has Indicated that the Following The Patient has indicated that they have no educational or learning abilities that may effect their care.: Yes Documented by User: China Kahn MA, [facility]-JOB SITE SUPERVISOR History History Date of Eval: 01/30/22 Attending Doctor: Referring Doctor: Reason for Referral: TONGUE CANCER/RX SCANNED IN Medical Diagnosis (from RX): Tongue Cancer C02.9,Malignant neoplasm of overlapping sites of tongue C02.8 Previous speech therapy: Yes Other Relevant Medical History/Diagnoses/Surgery: Alexys Chatman is a 64-year-old female diagnosed with pathologic stage HILARIO (pT4a pN0 M0) 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 From 03/24/2020 - 05/06/2020 the patient received radiation treatment. Pt reports participating in 2-4 speech therapy treatments w/ JOB SITE SUPERVISOR, Yesy, at [facility] just after surgery and during radiation. She had a FEES at that time. She has participated in 21 speech therapy sessions at [facility] and 4 MBSS. She had advanced her diet from NPO with FFWP (PEG for primary means of nutrition and hydration) to [place] thick liquids with FFWP and use of PEG for maintaining appropriate nutrition and hydration. She had to discontinue speech therapy in August 2021 due to a change in insurance and no longer having coverage for ST at [facility]. Recently, she switched to an insurance that will cover ST at [facility]. She was recommended for updated MBSS prior to return to therapy to monitor swallow function. She is at risk for worsening dysphagia s/p radiation. Pt reports increasing oral intake at home since August. She now consumes 1 cup of nectar thickened coffee, 6-8 cups of water. By PEG, she utilizes 3-4 cartons daily. She reports completing 80 effortful swallows per day, tongue ROM exercises, and jaw stretches. She wishes to return to OP ST for both dysphagia and speech therapy. Most recent MBSS from 01/19/2022 attached in note. It recommended continuing [place]-thick Liquids - Champion Free Water Protocol (FFWP); Head tilt for A-P transport of nectar thick liquids. After consumption of nectar thick liquids with recommend oral care via swish and spit with mouthwash, wait 30 min to consume thin water. Continue to utilize PEG tube to provide self adequate nutrition and hydration. Compensatory Strategies: Small Sips - with FFWP, recommend intermittent cough and re-swallow, Slow Rate, Multiple Swallows, Sitting upright; Recommend Repeat Modified Barium Swallow: Yes - Repeat MBSS in 6 month to monitor risk for worsening dysphagia and aspiration risk s/p radiation. Will recommend the patient for return to outpatient dysphagia therapy to address deficits in oropharyngeal swallow function, as well as dysarthria, secondary to tongue cancer with partial glossectomy. Smoking Status: Former smoker Hx Smoking Cessation Date: 02/08/20 Hx Tobacco Use: Yes Pain Is pain an issue with your current prescribed condition?: No Personal Preferred language: Yakut Patient Allergies Allergies Allergies: Allergies No Known Allergies Allergy (Verified 04/03/21 14:26) Previous/Current Goals Goals 1-5 Previous Goal #1: LTG: The patient will consume least restrictive diet textures without overt s/s of aspiration with minimal verbal cues for use of compensatory strategies to decrease risk for aspiration. Current diet: [place] Thick Liquids, with FFWP (multiple swallows, cough and re-swallow) and use of PEG tube to meet nutritional and hydration needs. Goal 1 Status: Limited Progress - [place]/mildly thick liquids with FFWP and PEG tube for majority of nutrition. Patient is motivated to maintain or advance current diet textures as she was tolerating trials of thin liquids with cough and re-swallow prior to recent MBSS. Previous Goal #2: The patient will complete an oropharyngeal exercise program during and post radiation treatment independently to improve and maintain strength, ROM, and coordination of swallowing mechanism (lingual ROM, jaw stretch, CTAR, Nora, effortful) (X10 repetitions, 3-5X daily). Goal 2 Status: Limited Progress - She continues to habitually complete recommended lingual ROM exercises, jaw stretch, and effortful swallows. Poor follow through with CTAR and Nora despite continued education re: importance to adhere to maintenance exercise program to maintain optimal swallow function s/p radiation treatment. Patient reports she is motivated to improve adherence to home exercise program and feels she benefits from education and encouragement from JOB SITE SUPERVISOR to complete full program. She reported that with Nora manuever it feels more difficult to complete full swallows than before. Previous Goal #3: The patient will participate in MBS study to objectively assess swallow function and provide recommendations for safest, least restrictive diet and compensatory strategies to reduce risk for aspiration. Goal 3 Status: Progressing - SEE attached MBSS from 08/24/2022 with plan for repeat MBSS in 6-12 months to monitor risk for worsening dysphagia s/p radiation treatment for tongue cancer. Previous Goal #4: The patient will demonstrate use or verbalize awareness of compensatory strategies to improve speech clarity in conversation with minimal verbal cues. Goal 4 Status: Progressing - Patient requires min-mod cues to carryover compensatory strategies to improve speech clarity in conversation. Previous Goal #5: LTG: The patient will increase speech intelligibility over the phone with familiar and unfamiliar listeners with 80% accuracy when given minimal cues. Goal 5 Status: Progressing - Goal met in structured activities. Patient reports successful phone exchanges at home with the exception of an emergency call she made to 9-1-1. Goals 6-10 Previous Goal #6: STG: The patient will produce the alveolar /t/ phoneme in all positions at the sentence level with 90% accuracy when given minimal cues to increase speech intelligibility. Goal 6 Status: Progressing - Patient demonstrates excellent use of strategies when reading. Decreased carryover of slow rate to conversational exchanges. Produced /t/ at the sentence level w/ 5/5 accuracy and /st/ at the sentence level w/ 16/20 accuracy. Previous Goal #7: - Previous Goal #8: - Previous Goal #9: - Subjective Dysphagia Symptoms Reported Symptoms/Problems with: Drooling, Coughing, Difficulty Swallowing Solids, Xerostomia and Hx of Aspiration Other: concern for fear of choking on small ice chip w/ water Current Diet Liquids Current Liquids: Thin [place] free water Protocol: Yes NPO NPO - Alternative Nutrition Method: Gastrostomy Tube Comments Current weight: -: 127 lbs Objective Dysphagia Administered by Administered by: Self Thin Liquids Administred via: Cup Oral Transit: Delay > 1 seconds Bolus clearance: significant clearance/minimal residue Cough: none observed/unable to assess Pharyngeal phase: laryngeal elevation mildly restricted slow initiation Comments: independent use of volitional cough and re-swallow, no additional coughing or s/s of aspiration Mildly Thick ([place]) Liquids Administered via: Cup Oral Transit: Delay > 1 seconds Bolus clearance: some clearance/residue Comments: multiple swallows, mild oral residue after the swallow, which was difficult to clear, no overt s/s of aspiration Swallowing Impairment Contributing Factors to Swallowing Impairment: Reduced Oral Strength/Coordination/Sensation, Impaired Oral-Pharyngeal Transport, Delayed Swallow Initiation and Reduced Laryngeal Excursion Impact Impact on Safety & Functioning: Risk for Aspiration and Risk for Inadequate Nutrition/Hydration Recommendations Modified Barium Swallow/Cookie Swallow Recommended: Yes Swallowing Treatment: Yes Diet Texture Recommendations Liquids: Thin (Level 0) NPO: Alternative Nutrition/Hydration Recommended Other: Continue receiving majority of nutrition via PEG. Safety Saftey Precautions/Swallowing Recommendations (Check all that Apply): Multiple Swallows Other: Small sips, cough and re-swallow with sips Results Swallowing Within Normal Limits: No Swallowing Diagnosis: Oropharyngeal Phase Dysphagia (R13.12) Additional: moderate-severe oropharyngeal dysphagia Severity: Severe Subjective Oral Motor Subjective Patient Reports: Drooling and Difficulty being Understood Comments Comments: Xerostomia, little difficulty being understood with subconscious use/ independent use of strategies to improve intelligibility, and numbness towards back R side of jaw. Objective Oral Motor Oral Status Dentition: Missing Teeth Additional: missing most of molars Labial Impairment: WNL Observation at Rest: WNL Closure: Drooling Pucker: WNL Retraction: WNL Alternating Pucker/Retraction: WNL Involuntary Movement noted: Yes Labial Comments Comments: Drooling attributed to poor A-P transport of saliva rather than labial weakness, and slight labial tremor. Lingual Impairment: Severe Protrusion: Severe Retraction: Severe Lateralization: Severe Involuntary Movement: No Lingual Comments Comments: elevation - moderate; pt moves jaw L and R to compensate for decreased lateralization Jaw Impairment: WNL Opening: Mild Closing: WNL Opening Measurement: 36mm Involuntary Movement: No Jaw Comments Comments: Patient reported numbness in the back R-side of lower jaw. Respiratory Status Respiratory Status: Room Air Modified Barium Results Hx If Applicable Enter into a NOTE MBS Report Entered: Yes MBS Results (from prior exam): 12/07/22 11:01 Speech Therapy by China Kahn [facility] Speech Pathology [address] [place] [address] Modified Barium Swallow Study MR#: [id number] Acct: [id number] Name: ALEXYS CHATMAN Rep #: [id number] : [id number] 66 From: Adriana Ba M.A. [facility]-JOB SITE SUPERVISOR Modified Barium Swallow Patient Information Study Date: 08/24/22 Study Time: 13:00 Direct Billable Minutes: 180 Total Minutes procedure & reportin Diagnosis: Tongue Cancer (C02.9) Referring Physician: Ryan Hennessy Reason for Referral: Objectively assess swallow function, risk for aspiration and determine recommendations for LRD and compensatory strategies to improve safety of the swallow. 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 From 03/24/2020 - 05/06/2020: received radiation treatment. Pt reports 2-4 speech therapy treatments w/ Yeys MICHAELS at [facility] numerous months ago. She had a FEES at that time. She has participated in 21 speech therapy sessions at [facility] and 3 MBSS. Most recent MBS study in January 2022 which recommended NTL w/ implementation of FFWP. See report for full details. She reports seeing China Kahn JOB SITE SUPERVISOR regularly, however d/t change in insurance has not seen China since May 2022. She was recommended for updated MBSS prior to return to therapy to monitor swallow function. She is at risk for worsening dysphagia s/p radiation. Patient reports that the only food she is having orally is nectar thick coffee and FFWP. Patient reported her goal would be to tolerate a puree soup such as a cream of chicken blended . By PEG, she utilizes 3-4 cartons daily. She reports completing oropharyngeal exercises re: effortful swallows per day, tongue ROM exercises, and jaw stretches. She has appointment w/ Trini Thao next week for OP Speech Therapy Current Diet Ordered: PEG for primary nutrition/hydration w/ NTL, FFWP Mental Status: WNL Respiratory Status: Oxygenating on Room Air Penetration-Aspiration Scale Penetration-Aspiration Scale: OBJECTIVE ASSESSMENT OF SWALLOW FUNCTION (QUANTITATIVE ? PER TRIAL): PENETRATION / ASPIRATION SCALE (BULL): 1 = does not enter airway 2 = enters airway/above vocal folds/ejected 3 = enters airway/above vocal folds/not ejected 4 = enters airway/contacts vocal folds/ejected 5 = enters airway/contacts vocal folds/not ejected 6 = enters airway/below vocal folds/ejected 7 = enters airway/below vocal folds/not ejected despite effort 8 = enters airway/below vocal folds/no effort VIDEOFLOROSCOPIC SCALE SCORE (BULL): Grade I = aspiration of material that has penetrated into the laryngeal vestibule, intact cough reflex Grade II = aspiration < 10 % of the bolus, intact cough reflex Grade III = aspiration of < 10 % of the bolus, reduced cough reflex or aspiration of > 10 % of the bolus, intact cough reflex Grade IV = aspiration of > 10 % of the bolus, reduced cough reflex Penetration-Aspiration Scale Score Thin Liquid via teaspoon: Result: 5= enters airways/contacts vocal folds/not ejected Thin Liquid via teaspoon Trial 2: Result: 5= enters airways/contacts vocal folds/not ejected Thin Liquid via teaspoon Trial 3: Result: 5= enters airways/contacts vocal folds/not ejected Thin Liquid via single sip from cup: Result: 5= enters airways/contacts vocal folds/not ejected Thin Liquid via single sip from cup Trial 2: Result: 2= enter airway/above vocal folds/ejected [place] Thick Liquid via single sip from cup : Result: 1= does not enter airway Moist Puree: Result: 1= does not enter airway Thin Liquid via single sip from cup Trial 3: Result: 8= enters airway/below vocal folds/no effort Oral Phase Labial Seal: Escape progressing to mid-chin Tongue Control During Bolus Hold: Posterior escape of less than half of bolus Bolus Transport/Lingual Motion: Minimal to no tongue motion Oral Residue: Majority of bolus remaining Pharyngeal Phase Initiation of Pharyngeal Swallow: Bolus head in pyriforms Soft Palate Elevation: No bolus between soft palate and pharyngeal wall Laryngeal Elevation: Partial superior movement thyroid cart/partial apprx aryt-epig petiole Anterior Hyoid Excursion: Partial anterior movement Epiglottic Movement: No inversion Laryngeal Vestibule Closure at Height of Swallow: Incomplete; narrow column of air/contrast in laryngeal vestibule Pharyngeal Stripping Wave: Present - diminished Pharyngoesophageal Segment Opening: Parital distension and partial duration; parital obstruction of flow Tongue Base Retraction: Narrow column of contrast between tongue base & post. pharyngeal wall Pharyngeal Residue: Collection of residue within or on pharyngeal structures Treatment Strategies Effects of treatment strategies attemped:: cough and re- swallow = not effective Diagnosis/Impression Diagnosis: severe oropharyngeal dysphagia R13.12 Impression: Patient presents w/ severe oropharyngeal dysphagia. Oral phase primarily marked by.... - severely restricted tongue ROM s/p partial glossectomy. - poor bolus control w/ premature posterior loss of >1/2 of various trials to the laryngeal vestibule and pyriforms prior to swallow onset. - moderate oral residue post deglutition which did worsen w/ thicker viscosities. Patient required 5-8 swallows to clear 1 tsp of thin liquid and nectar thick liquid. Patient used a swish / spit technique to clear oral residues which did significantly improve. - attempted moist puree w/ no AP transit despite head tilt backwards. W/ liquid wash, patient was able to wash some of the puree down. Remaining moist puree was removed w/ swish / spit technique. Pharyngeal phase primarily marked by... -mildly decreased tongue base retraction, mild-moderate deficits in pharyngeal stripping wave, mild-moderate deficits in UES opening/duration, the patient presented with mild-moderate pharyngeal residues, which mostly cleared with independent use of multiple swallows. -little to no anterior hyoid excursion, no epiglottic inversion, and mild-moderately decreased laryngeal elevation resulting in decreased airway closure during the swallow. - penetration to the vocal folds that did not fully eject was observed w/ thin via tsp and thin via cup. Patient did present w/ reflexive throat clear w/ penetration. Cough and re-swallow was not effective. - silent aspiration observed w/ additional trial of thin via cup. Cough and re-swallow was not effective. Recommendations Diet: [place]-thick Liquids (w/ FFWP) Comment: Continue w/ prior MBSS recommendations to use head tilt for AP transport of NTL. Use swish / spit technique for oral residue remaining in the oral cavity post deglutition. Compensatory Strategies: Small Sips, Slow Rate, Multiple Swallows and Sitting upright Recommend Repeat Modified Barium Swallow: Yes Comment: Recommend repeat MBSS in 6 months to monitor risk for worsening dysphagia and aspiration risk s/p radiation. Need for Skilled Speech Therapy Services: Yes Comment: Will recommend the patient for outpatient dysphagia therapy to address deficits in oropharyngeal swallow function, as well as dysarthria, secondary to tongue cancer with partial glossectomy. Will recommend the patient for oropharyngeal strengthening to improve lingual ROM, laryngeal elevation, hyoid excursion, pharyngeal contraction, and duration of UES opening (CTAR, Nora, effortful swallow, lingual ROM exercises). The patient would benefit from thorough education regarding diet recommendations and recommended compensatory strategies. Will recommend trials of thin liquids with JOB SITE SUPERVISOR with use of multiple, effortful swallows and cough and re-swallow. The patient requires further education re: FFWP with emphasis on importance of oral care following consumption of nectar thickened consistencies. Patient reports having appointment w/ Trini Thao JOB SITE SUPERVISOR next week. Education Completed: 1. Described result of evaluation., 2. Pt understands evaluation & agrees with goals and treatment plan., 4. Family/caregivers understand evaluation & agree w/ goals & tx plan. and 7. Pt requires further education on strategies & risks. Status Active ST Patient: Active Contact Information [facility] Speech Therapy:: Adriana Ba M.A. [facility]-JOB SITE SUPERVISOR Speech-Language Pathologist [facility] [address] [place] [address] [email or web address] [phone] 08/24/22 1601 <Electronically signed by Adriana Ba M.A., MELBA-JOB SITE SUPERVISOR> Date/Time Adriana Ba M.A., CCC-JOB SITE SUPERVISOR Initialized on 12/07/22 11:01 - END OF NOTE Subjective Dysarthria/Motor Subjective Subjective: Patient reports she has difficulty with /st/ blends, and reports feelings of frustration when she has to slow down or repeat herself during conversation. Objective Dysarthira/Motor Speech Intelligibility Phonemes: Mild Single Words: Mild Phrases: Mild Sentences: Mild Conversation: Mild Volume Volume: WNL Sounds Sounds in Error: Patient produces sh for /st/ blends. Observation Observation of Apraxia of Speech: No Oral Groping for Placement: No Inconsistent Errors: No Awareness/Strategy Use Uses strategies intermittently to improve intelligibility or listener's understanding of message: Yes Comments Diadochokinetic Rates: -: Informal speech production assessment 01/30/2022 - /p^/ - 6.5 syllables per second (WNL = at least 6.4 syllables per second), /t^/ - 1.9 syllables per second (WNL = at least 6.1 syllables per second), /k^/ - 2.1 syllables per second (WNL = at least 5.7 syllables per second). /p^t^k^/ - 2.7 syllables per second. Will plan for further assessment of speech production in the word, sentence, and conversational levels in upcoming sessions to set additional goals to POC to promote improved speech clarity in conversation. Currently, the patient presents with mild-moderate dysarthria and presents with ~90% speech intelligibility in conversation. The patient expresses interest in improving certain sounds in conversation to reduce the need for repetition in complex conversations with others. Informal Sentence Level Dysarthria Assessment: -: Pt verbally repeated sentences with words with the following consonant sounds in the initial, medial, and final positions: Bilabials ? 6/6 acc Alveolars? 10/27 acc Velars ? / acc Sibilants ? 01/29 acc Affricates ? / acc Glides ? 10/27 acc /s/ Blends ? 12/29 acc /l/ Blends ? 08/25 acc (errors = omission of /l/ 1X) The patient presents with mild dysarthria characterized by difficulty with articulation of various consonant blends. Will recommend continued dysarthria treatment weekly to train in phonetic placement of /st/ blends and practice placement in the sentence/word/conversational levels with goal of improving speech intelligibility in complex conversation to promote improved ability to express medical and social wants and needs. Swallowing Performance Scale Swallowing Performance Scale Swallowing Performance Scale Result: 6 Moderate to Severe Reference: Neuro-QoL instrument HDQLIFE - Speech Difficulties In the past 7 days. It was difficult for other people to understand me.: Rarely Is was difficult to speak clearly?: Rarely In the past 7 days.. How often did you limit your social activites because you had difficulty speaking?: Never In the past 7 days... I had trouble speaking.: Not at all I was frustrated by my speech difficulties.: A little bit How much DIFFICULTY do you have... ...saying what you want to say?: A little difficulty Score HDQLIFE Speech Difficulties Raw Score: 10 HDQLIFE Speech Difficulties T - Score: 50 Radiation Oncology Patient FOIS Functional Oral Intake Scale Tube dependent with consistent oral intake of food or liquid: Level 3 Plan Plan Plan: Will recommend the patient for skilled outpatient speech therapy to address mild dysarthria and moderate-severe oropharyngeal dysphagia related to tongue cancer s/p partial glossectomy w/ flap-based reconstruction. Will complete a repeat Modified Barium Swallow Study 6-12 months from previous MBSS (February 2023) to reassess swallow function, aspiration risk, and determine appropriateness for diet advancement. This patient requires skilled dysphagia intervention to implement updated oropharyngeal exercise program, train in use of strategies to decrease risk for aspiration, and trial to advance diet textures. She also requires skilled speech therapy services to address mild dysarthria, implement oral motor ROM exercises, and train in strategies for articulatory placement to improve speech clarity. Recommendations MBS: Yes Treatment Warranted: Yes Treatment Warranted: Speech Sound Production and Dysphagia Comment: Repeat MBSS in July to monitor risk for worsening dysphagia s/p radiation treatment for tongue cancer. Progress Prognosis: Good Frequency Frequency: Monthly Additional (Frequency): monthly due to financial reasons Duration: 12 Months Patient/Family Goal Patient/Family Goal: Improve speech clarity in conversation. Advance diet as able. Improve in follow through with oropharyngeal exercise program. Goals that are Established Determination:: Goals will be added/modified as deemed necessary and appropriate. Therapy will be discontinued when results of re-evaluation indicate therapy is no longer needed or lack of progress has been documented. Goal #1-5 Goal #1: LTG: The patient will consume least restrictive diet textures without overt s/s of aspiration with minimal verbal cues for use of compensatory strategies to decrease risk for aspiration. Current diet: [place] Thick Liquids, with FFWP (multiple swallows, cough and re-swallow) and use of PEG tube to meet nutritional and hydration needs. Goal #2: The patient will complete an oropharyngeal exercise program during and post radiation treatment independently to improve and maintain strength, ROM, and coordination of swallowing mechanism (lingual ROM, jaw stretch, CTAR, Nora, effortful) (X10 repetitions, 3-5X daily). Goal #3: The patient will participate in MBS study to objectively assess swallow function and provide recommendations for safest, least restrictive diet and compensatory strategies to reduce risk for aspiration. Goal #4: LTG: The patient will increase speech intelligibility over the phone with unfamiliar listeners and in emergent situations with 95% accuracy when given minimal cues. Goal #5: The patient will demonstrate use or verbalize awareness of compensatory strategies to improve speech clarity, including breath support strategies, in conversation with minimal verbal cues. Goal #6-10 Goal #6: The patient will produce the alveolar /t/ and /st/ blends in all positions in conversation with 90% accuracy when given minimal cues to increase speech intelligibility. Goal #7: Reinforced compensatory strategy use - slow rate, exaggerated articulation - w/ production of /t/ and /st/ words at the sentence level. Pt demonstrated excellent use of strategies when reading. Decreased carryover of slow rate to conversational exchanges. Produced /t/ at the sentence level w/ 5/5 accuracy and /st/ at the sentence level w/ 16/20 accuracy. Goal #8: - Goal #9: - Education Patient has Indicated that the Following Identified Educational Needs: None The Patient has indicated that they have no educational or learning abilities that may effect their care.: Yes Patient Instruction Patient Education: Diagnosis, Treatment Plan, Goals, Safety Precautions, Diet Level and Home Exercise Program Person Taught: Patient and Family Teaching Method: Discussion and Demonstration Response to teaching: Return demonstration, Verbalize understanding and Reinforcement needed
--- NOTE | 2022-12-12 15:36 | HP.SP.REEV ---
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 From 03/24/2020 - 05/06/2020 the patient received radiation treatment. Pt reports participating in 2-4 speech therapy treatments w/ SENIOR QUALITY METHODS SPECIALIST, Yesy, at [facility] just after surgery and during radiation. She had a FEES at that time. She has participated in OP speech therapy at [facility] on and off (mostly due to financial/insurance reasons) since radiation treatment to address dysarthria and dysphagia s/p radiation treatment. She has participated in 5 MBSS with most recent MBSS 08/24/2022. She has advanced her diet from NPO with FFWP (PEG for primary means of nutrition and hydration) to [place] thick liquids with FFWP and use of PEG for maintaining appropriate nutrition and hydration. Smoking Status: Former smoker Hx Smoking Cessation Date: 02/08/20 Hx Tobacco Use: Yes Pain Is pain an issue with your current prescribed condition?: No Patient Allergies Allergies Allergies: Allergies No Known Allergies Allergy (Verified 04/03/21 14:26) Previous/Current Goals Goals 1-5 Previous Goal #1: LTG: The patient will consume least restrictive diet textures without overt s/s of aspiration with minimal verbal cues for use of compensatory strategies to decrease risk for aspiration. Current diet: [place] Thick Liquids, with FFWP (multiple swallows, cough and re-swallow) and use of PEG tube to meet nutritional and hydration needs. Goal 1 Status: Limited Progress - [place]/mildly thick liquids with FFWP and PEG tube for majority of nutrition. Patient is motivated to maintain or advance current diet textures as she was tolerating trials of thin liquids with cough and re-swallow prior to recent MBSS. Previous Goal #2: The patient will complete an oropharyngeal exercise program during and post radiation treatment independently to improve and maintain strength, ROM, and coordination of swallowing mechanism (lingual ROM, jaw stretch, CTAR, Nora, effortful) (X10 repetitions, 3-5X daily). Goal 2 Status: Limited Progress - She continues to habitually complete recommended lingual ROM exercises, jaw stretch, and effortful swallows. Poor follow through with CTAR and Nora despite continued education re: importance to adhere to maintenance exercise program to maintain optimal swallow function s/p radiation treatment. Patient reports she is motivated to improve adherence to home exercise program and feels she benefits from education and encouragement from SENIOR QUALITY METHODS SPECIALIST to complete full program. She reported that with Nora manuever it feels more difficult to complete full swallows than before. Previous Goal #3: The patient will participate in MBS study to objectively assess swallow function and provide recommendations for safest, least restrictive diet and compensatory strategies to reduce risk for aspiration. Goal 3 Status: Progressing - SEE attached MBSS from 08/24/2022 with plan for repeat MBSS in 6-12 months to monitor risk for worsening dysphagia s/p radiation treatment for tongue cancer. Previous Goal #4: The patient will demonstrate use or verbalize awareness of compensatory strategies to improve speech clarity in conversation with minimal verbal cues. Goal 4 Status: Progressing - Patient requires min-mod cues to carryover compensatory strategies to improve speech clarity in conversation. Previous Goal #5: LTG: The patient will increase speech intelligibility over the phone with familiar and unfamiliar listeners with 80% accuracy when given minimal cues. Goal 5 Status: Progressing - Goal met in structured activities. Patient reports successful phone exchanges at home with the exception of an emergency call she made to 9-1-1. Goals 6-10 Previous Goal #6: STG: The patient will produce the alveolar /t/ phoneme in all positions at the sentence level with 90% accuracy when given minimal cues to increase speech intelligibility. Goal 6 Status: Progressing - Patient demonstrates excellent use of strategies when reading. Decreased carryover of slow rate to conversational exchanges. Produced /t/ at the sentence level w/ 5/5 accuracy and /st/ at the sentence level w/ 16/20 accuracy. Previous Goal #7: - Previous Goal #8: - Previous Goal #9: - Modified Barium Results Hx If Applicable Enter into a NOTE MBS Report Entered: Yes MBS Results (from prior exam): 12/07/22 11:01 Speech Therapy by China Kahn [facility] Speech Pathology [address] [address] Modified Barium Swallow Study MR#: [id number] Acct: [id number] Name: ALEXYS CHATMAN Rep #: [id number] : 1955 66 From: Adriana Ba M.A. [facility]-SENIOR QUALITY METHODS SPECIALIST Modified Barium Swallow Patient Information Study Date: 08/24/22 Study Time: 13:00 Direct Billable Minutes: 180 Total Minutes procedure & reportin Diagnosis: Tongue Cancer (C02.9) Referring Physician: Ryan Hennessy Reason for Referral: Objectively assess swallow function, risk for aspiration and determine recommendations for LRD and compensatory strategies to improve safety of the swallow. 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 From 03/24/2020 - 05/06/2020: received radiation treatment. Pt reports 2-4 speech therapy treatments w/ SENIOR QUALITY METHODS SPECIALISTYesy at [facility] numerous months ago. She had a FEES at that time. She has participated in 21 speech therapy sessions at [facility] and 3 MBSS. Most recent MBS study in January 2022 which recommended NTL w/ implementation of FFWP. See report for full details. She reports seeing China MICHAELS regularly, however d/t change in insurance has not seen China since May 2022. She was recommended for updated MBSS prior to return to therapy to monitor swallow function. She is at risk for worsening dysphagia s/p radiation. Patient reports that the only food she is having orally is nectar thick coffee and FFWP. Patient reported her goal would be to tolerate a puree soup such as a cream of chicken blended . By PEG, she utilizes 3-4 cartons daily. She reports completing oropharyngeal exercises re: effortful swallows per day, tongue ROM exercises, and jaw stretches. She has appointment w/ Trini Thao next week for OP Speech Therapy Current Diet Ordered: PEG for primary nutrition/hydration w/ NTL, FFWP Mental Status: WNL Respiratory Status: Oxygenating on Room Air Penetration-Aspiration Scale Penetration-Aspiration Scale: OBJECTIVE ASSESSMENT OF SWALLOW FUNCTION (QUANTITATIVE ? PER TRIAL): PENETRATION / ASPIRATION SCALE (BULL): 1 = does not enter airway 2 = enters airway/above vocal folds/ejected 3 = enters airway/above vocal folds/not ejected 4 = enters airway/contacts vocal folds/ejected 5 = enters airway/contacts vocal folds/not ejected 6 = enters airway/below vocal folds/ejected 7 = enters airway/below vocal folds/not ejected despite effort 8 = enters airway/below vocal folds/no effort VIDEOFLOROSCOPIC SCALE SCORE (BULL): Grade I = aspiration of material that has penetrated into the laryngeal vestibule, intact cough reflex Grade II = aspiration < 10 % of the bolus, intact cough reflex Grade III = aspiration of < 10 % of the bolus, reduced cough reflex or aspiration of > 10 % of the bolus, intact cough reflex Grade IV = aspiration of > 10 % of the bolus, reduced cough reflex Penetration-Aspiration Scale Score Thin Liquid via teaspoon: Result: 5= enters airways/contacts vocal folds/not ejected Thin Liquid via teaspoon Trial 2: Result: 5= enters airways/contacts vocal folds/not ejected Thin Liquid via teaspoon Trial 3: Result: 5= enters airways/contacts vocal folds/not ejected Thin Liquid via single sip from cup: Result: 5= enters airways/contacts vocal folds/not ejected Thin Liquid via single sip from cup Trial 2: Result: 2= enter airway/above vocal folds/ejected [place] Thick Liquid via single sip from cup : Result: 1= does not enter airway Moist Puree: Result: 1= does not enter airway Thin Liquid via single sip from cup Trial 3: Result: 8= enters airway/below vocal folds/no effort Oral Phase Labial Seal: Escape progressing to mid-chin Tongue Control During Bolus Hold: Posterior escape of less than half of bolus Bolus Transport/Lingual Motion: Minimal to no tongue motion Oral Residue: Majority of bolus remaining Pharyngeal Phase Initiation of Pharyngeal Swallow: Bolus head in pyriforms Soft Palate Elevation: No bolus between soft palate and pharyngeal wall Laryngeal Elevation: Partial superior movement thyroid cart/partial apprx aryt-epig petiole Anterior Hyoid Excursion: Partial anterior movement Epiglottic Movement: No inversion Laryngeal Vestibule Closure at Height of Swallow: Incomplete; narrow column of air/contrast in laryngeal vestibule Pharyngeal Stripping Wave: Present - diminished Pharyngoesophageal Segment Opening: Parital distension and partial duration; parital obstruction of flow Tongue Base Retraction: Narrow column of contrast between tongue base & post. pharyngeal wall Pharyngeal Residue: Collection of residue within or on pharyngeal structures Treatment Strategies Effects of treatment strategies attemped:: cough and re- swallow = not effective Diagnosis/Impression Diagnosis: severe oropharyngeal dysphagia R13.12 Impression: Patient presents w/ severe oropharyngeal dysphagia. Oral phase primarily marked by.... - severely restricted tongue ROM s/p partial glossectomy. - poor bolus control w/ premature posterior loss of >1/2 of various trials to the laryngeal vestibule and pyriforms prior to swallow onset. - moderate oral residue post deglutition which did worsen w/ thicker viscosities. Patient required 5-8 swallows to clear 1 tsp of thin liquid and nectar thick liquid. Patient used a swish / spit technique to clear oral residues which did significantly improve. - attempted moist puree w/ no AP transit despite head tilt backwards. W/ liquid wash, patient was able to wash some of the puree down. Remaining moist puree was removed w/ swish / spit technique. Pharyngeal phase primarily marked by... -mildly decreased tongue base retraction, mild-moderate deficits in pharyngeal stripping wave, mild-moderate deficits in UES opening/duration, the patient presented with mild-moderate pharyngeal residues, which mostly cleared with independent use of multiple swallows. -little to no anterior hyoid excursion, no epiglottic inversion, and mild-moderately decreased laryngeal elevation resulting in decreased airway closure during the swallow. - penetration to the vocal folds that did not fully eject was observed w/ thin via tsp and thin via cup. Patient did present w/ reflexive throat clear w/ penetration. Cough and re-swallow was not effective. - silent aspiration observed w/ additional trial of thin via cup. Cough and re-swallow was not effective. Recommendations Diet: [place]-thick Liquids (w/ FFWP) Comment: Continue w/ prior MBSS recommendations to use head tilt for AP transport of NTL. Use swish / spit technique for oral residue remaining in the oral cavity post deglutition. Compensatory Strategies: Small Sips, Slow Rate, Multiple Swallows and Sitting upright Recommend Repeat Modified Barium Swallow: Yes Comment: Recommend repeat MBSS in 6 months to monitor risk for worsening dysphagia and aspiration risk s/p radiation. Need for Skilled Speech Therapy Services: Yes Comment: Will recommend the patient for outpatient dysphagia therapy to address deficits in oropharyngeal swallow function, as well as dysarthria, secondary to tongue cancer with partial glossectomy. Will recommend the patient for oropharyngeal strengthening to improve lingual ROM, laryngeal elevation, hyoid excursion, pharyngeal contraction, and duration of UES opening (CTAR, Nora, effortful swallow, lingual ROM exercises). The patient would benefit from thorough education regarding diet recommendations and recommended compensatory strategies. Will recommend trials of thin liquids with SENIOR QUALITY METHODS SPECIALIST with use of multiple, effortful swallows and cough and re-swallow. The patient requires further education re: FFWP with emphasis on importance of oral care following consumption of nectar thickened consistencies. Patient reports having appointment w/ Trini Thao SENIOR QUALITY METHODS SPECIALIST next week. Education Completed: 1. Described result of evaluation., 2. Pt understands evaluation & agrees with goals and treatment plan., 4. Family/caregivers understand evaluation & agree w/ goals & tx plan. and 7. Pt requires further education on strategies & risks. Status Active ST Patient: Active Contact Information [facility] Speech Therapy:: Adriana Ba M.A. CCC-SENIOR QUALITY METHODS SPECIALIST Speech-Language Pathologist [address] [address] [email or web address] [phone] 08/24/22 1605 <Electronically signed by Adriana Ba M.A. CCC-SENIOR QUALITY METHODS SPECIALIST> Date/Time Adriana Ba M.A. CCC-SENIOR QUALITY METHODS SPECIALIST Initialized on 12/07/22 11:01 - END OF NOTE Swallowing Performance Scale Swallowing Performance Scale Swallowing Performance Scale Result: 6 Moderate to Severe Reference: Neuro-QoL instrument Radiation Oncology Patient FOIS Functional Oral Intake Scale Tube dependent with consistent oral intake of food or liquid: Level 3 Plan Plan Plan: Will recommend the patient for skilled outpatient speech therapy to address mild dysarthria and moderate-severe oropharyngeal dysphagia related to tongue cancer s/p partial glossectomy w/ flap-based reconstruction. Will complete a repeat Modified Barium Swallow Study 6-12 months from previous MBSS (February 2023) to reassess swallow function, aspiration risk, and determine appropriateness for diet advancement. This patient requires skilled dysphagia intervention to implement updated oropharyngeal exercise program, train in use of strategies to decrease risk for aspiration, and trial to advance diet textures. She also requires skilled speech therapy services to address mild dysarthria, implement oral motor ROM exercises, and train in strategies for articulatory placement to improve speech clarity. Recommendations MBS: Yes Treatment Warranted: Yes Treatment Warranted: Speech Sound Production and Dysphagia Progress Prognosis: Good Frequency Frequency: Monthly Additional (Frequency): monthly due to financial reasons Duration: 12 Months Patient/Family Goal Patient/Family Goal: Improve speech clarity in conversation. Advance diet as able. Improve in follow through with oropharyngeal exercise program. Goals that are Established Determination:: Goals will be added/modified as deemed necessary and appropriate. Therapy will be discontinued when results of re-evaluation indicate therapy is no longer needed or lack of progress has been documented. Goal #1-5 Goal #1: LTG: The patient will consume least restrictive diet textures without overt s/s of aspiration with minimal verbal cues for use of compensatory strategies to decrease risk for aspiration. Current diet: [place] Thick Liquids, with FFWP (multiple swallows, cough and re-swallow) and use of PEG tube to meet nutritional and hydration needs. Goal #2: The patient will complete an oropharyngeal exercise program during and post radiation treatment independently to improve and maintain strength, ROM, and coordination of swallowing mechanism (lingual ROM, jaw stretch, CTAR, Nora, effortful) (X10 repetitions, 3-5X daily). Goal #3: The patient will participate in MBS study to objectively assess swallow function and provide recommendations for safest, least restrictive diet and compensatory strategies to reduce risk for aspiration. Goal #4: LTG: The patient will increase speech intelligibility over the phone with unfamiliar listeners and in emergent situations with 95% accuracy when given minimal cues. Goal #5: The patient will demonstrate use or verbalize awareness of compensatory strategies to improve speech clarity, including breath support strategies, in conversation with minimal verbal cues. Goal #6-10 Goal #6: The patient will produce the alveolar /t/ and /st/ blends in all positions in conversation with 90% accuracy when given minimal cues to increase speech intelligibility. Goal #7: - Goal #8: - Goal #9: - Education Patient has Indicated that the Following Identified Educational Needs: None The Patient has indicated that they have no educational or learning abilities that may effect their care.: Yes Patient Instruction Patient Education: Diagnosis, Treatment Plan, Goals, Safety Precautions, Diet Level and Home Exercise Program Person Taught: Patient and Family Teaching Method: Discussion and Demonstration Response to teaching: Return demonstration, Verbalize understanding and Reinforcement needed
--- NOTE | 2023-04-23 16:19 | HP.SP.DC_ITS ---
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 From 03/24/2020 - 05/06/2020: received radiation treatment. Pt reports 2-4 speech therapy treatments w/ [employer] TEACHERYesy at [facility] numerous months ago. She had a FEES at that time recommending thin liquids. At [facility], she has participated in 6 MBSS. 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 Currently, she consumes nectar thick liquids with FFWP. She uses her PEG tube as primary means of nutrition. She reports completion of the following oropharyngeal exercises daily: effortful swallows, tongue ROM exercises, and jaw stretches. Most recent MBS study on 04/09/2023 recommended nectar thick liquids w/ FFWP (See report for full details). Additionally, the MBSS revealed the patient has maintained swallow function as compared to previous study in August of 2022. Patient should continue with home oropharyngeal exercise program 3-5X daily from OP speech therapy. She verbalized understanding of recommendations and has been compliant with the recommended exercise program with the exception of completion of Nora and CTAR in the past. Please reach out to physician or ST if concern for worsening swallow function prior to repeat MBSS. The patient will be discharged from OP speech therapy at this time. Yumiko has been a pleasure to work with during this POC.
== END 2023-03-15 19:00 | disposition home or self-care (01) ==
LOC: SP 11:30
PROVIDERS: Referring Provider Student in an Organized Health Care Education/Training Program; Visit Provider Student in an Organized Health Care Education/Training Program
DX: C02.9 Malignant neoplasm of tongue, unspecified (principal); R13.12 Dysphagia, oropharyngeal phase; R47.1 Dysarthria and anarthria; R47.89 Other speech disturbances; R47.81 Slurred speech
CPT/HCPCS: 92507; 92522; 92526; 92610

== ENCOUNTER → 2023-04-09 | Outpatient (CLI) | payer MEDICARE, MEDICAID, SELFPAY ==
[2020-03-07 11:16] VITALS: BMI 19.4
--- NOTE | 2023-04-09 15:05 | SP.MBSS_ITS ---
Modified Barium Swallow Patient Information Study Date: 04/09/23 Study Time: 13:10 Direct Billable Minutes: 120 Total Minutes procedure & reportin Diagnosis: Tongue Cancer C02.9 Referring Physician: Ryan Hennessy Reason for Referral: Objectively assess swallow function, assess risk for aspiration, and determine recommendations for least restrictive diet textures and compensatory strategies to improve safety of swallow. 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 From 03/24/2020 - 05/06/2020: received radiation treatment. Pt reports 2-4 speech therapy treatments w/ [employer], Yesy at [facility] numerous months ago. She had a FEES at that time. She has participated in 5 MBSS. Most recent MBS study in August 2022 which recommended nectar thick liquids w/ implementation of FFWP (See report for full details) and outpatient speech therapy services. She did attend OP dysphagia and speech therapy for continued training in current diet textures and recommended strategies, as well as oropharyngeal exercise program. She was recommended for updated MBSS to monitor risk for worsening swallow function s/p radiation. Patient reports that the only food/drink she is having orally is nectar thick coffee and FFWP. She uses her PEG tube as primary means of nutrition. She reports completing oropharyngeal exercises re: effortful swallows per day, tongue ROM exercises, and jaw stretches. Dentition: Natural Teeth and Missing Teeth Mental Status: WNL Respiratory Status: Oxygenating on Room Air Penetration-Aspiration Scale Penetration-Aspiration Scale: OBJECTIVE ASSESSMENT OF SWALLOW FUNCTION (QUANTITATIVE ? PER TRIAL): PENETRATION / ASPIRATION SCALE (BULL): 1 = does not enter airway 2 = enters airway/above vocal folds/ejected 3 = enters airway/above vocal folds/not ejected 4 = enters airway/contacts vocal folds/ejected 5 = enters airway/contacts vocal folds/not ejected 6 = enters airway/below vocal folds/ejected 7 = enters airway/below vocal folds/not ejected despite effort 8 = enters airway/below vocal folds/no effort VIDEOFLOROSCOPIC SCALE SCORE (BULL): Grade I = aspiration of material that has penetrated into the laryngeal vestibule, intact cough reflex Grade II = aspiration < 10 % of the bolus, intact cough reflex Grade III = aspiration of < 10 % of the bolus, reduced cough reflex or aspiration of > 10 % of the bolus, intact cough reflex Grade IV = aspiration of > 10 % of the bolus, reduced cough reflex Penetration-Aspiration Scale Score Thin Liquid via teaspoon: Result: 7= enters airways/below vocal folds/not ejected despite effort Thin Liquid via teaspoon Trial 2: Result: 7= enters airways/below vocal folds/not ejected despite effort Thin Liquid via large single sip: cup: Result: 5= enters airways/contacts vocal folds/not ejected [place] Thick Liquid via small single sip: cup: Result: 2= enter airway/above vocal folds/ejected Thin Liquid via small single sip: cup: Result: 4= enters airway/contacts vocal folds/ejected Oral Phase Labial Seal: No Labial Escape Tongue Control During Bolus Hold: Posterior escape of less than half of bolus Bolus Transport/Lingual Motion: Minimal to no tongue motion ( head tilt assists A-P transport throughout the study) Oral Residue: Residue collection on oral structures Pharyngeal Phase Initiation of Pharyngeal Swallow: Bolus head in pyriforms Soft Palate Elevation: No bolus between soft palate and pharyngeal wall Laryngeal Elevation: Partial superior movement thyroid cart/partial apprx aryt- epig petiole Anterior Hyoid Excursion: No anterior movement (minimal to no anterior movement) Epiglottic Movement: Partial inversion Laryngeal Vestibule Closure at Height of Swallow: Incomplete; narrow column of air/contrast in laryngeal vestibule Pharyngeal Stripping Wave: Present - diminished Pharyngoesophageal Segment Opening: Parital distension and partial duration; parital obstruction of flow Tongue Base Retraction: Wide column of contrast between tongue base & post. pharyngeal wall Pharyngeal Residue: Collection of residue within or on pharyngeal structures Diagnosis/Impression Diagnosis: Severe oral dysphagia R13.10, Moderate pharyngeal R13.13 Impression: The oral phase is primarily marked by... -Decreased bolus control with >1/2 of the bolus spilling posteriorly to the pyriform sinuses prior to swallow onset observed with thin liquids. -Minimal to no tongue motion for A-P transport d/t partial glossectomy. Head tilt assists A-P transport. -Mild oral residue after the swallow, which mostly cleared with independent initiation of a multiple swallows as needed. The pharyngeal phase is primarily marked by... -Decreased airway closure during the swallow due to minimal to no anterior hyoid excursion, no epiglottic inversion, and decreased laryngeal elevation. -Decreased tongue base retraction, UES opening/duration, pharyngeal stripping wave with resulting mild pharyngeal residues after the swallow. -Aspiration of thin liquids by tsp 2X with delayed cough reflex. Consistent l aryngeal penetration with thin and mildly thick liquids via cup. Large sip of thin liquids via cup did not reliably eject from the laryngeal vestibule after the swallow. Patient independently uses effortful swallows, multiple swallows, and reflexive cough/throat clear to somewhat decrease amount of aspiration and laryngeal penetration. Recommendations Diet: [place]-thick Liquids (w/ Champion Free Water Protocol) Comment: PEG tube to meet primary nutrition/hydration needs Compensatory Strategies: Small Sips (intermittent cough and re-swallows), Slow Rate, Multiple Swallows and Sitting upright Recommend Repeat Modified Barium Swallow: Yes Comment: Plan for repeat MBSS in 6-12 months to continue to monitor swallow function s/p radiation, as patient is at increased risk for worsening dysphagia and as piration risk related to intermediate effects of radiation. Need for Skilled Speech Therapy Services: No Comment: Patient should continue with home oropharyngeal exercise program 3-5X daily from OP speech therapy. She verbalized understanding of recommendations and has been compliant with the recommended exercise program with the exception of completion of Nora and CTAR in the past. Please reach out to physician or ST if concern for worsening swallow function prior to repeat MBSS. Education Completed: 1. Described result of evaluation. Status Active ST Patient: Active Contact Information [facility] Speech Therapy:: China Kahn M.A. [facility]3]-[employer] Speech-Language Pathologist [facility] [address] [place] [address] [email or web address] [phone]
== END | disposition home or self-care (01) ==
PROVIDERS: Referring Provider Student in an Organized Health Care Education/Training Program; Visit Provider Student in an Organized Health Care Education/Training Program
DX: C02.9 Malignant neoplasm of tongue, unspecified (principal)
CPT/HCPCS: 74230; 92611